=== PATIENT | male | born 1955 | race Caucasian/White ===

== ENCOUNTER 2018-07-22 20:48 | Inpatient (IN) | payer OTHER ==
[2018-07-22 21:03] VITALS: BMI 27.6
--- NOTE | 2018-07-22 22:06 | PDOC ---
History of Present Illness - General Chief Complaint: Injury Stated Complaint: FALL,INJURY Time Seen by Provider: 07/22/18 21:20 - History of Present Illness Initial Comments: 07/22/18 22:07 MH of Lymphoma, HIV (unknown CD4 count, unknown viral load) depression, history of seizures, CAD (s/p CABG) fall with subsequent L hip surgery 3 months ago and L knee surgery 1 month ago presents with sharp 10/10 pain onset this AM took percocet this morning but pain became worse tonight no fever, has some increased swelling in the L leg over the past month no chest pain no nausea, vomiting, no dysuria, hematuria has some shortness of breath and some constipation after taking percocet saw orthopedics yesterday had XR negative and reported to have good healing Surgeons: Bhargav Cisse Goes to PT, next appointment Wednesday Past History - Past Medical History Allergies/Adverse Reactions: Allergies Allergy/AdvReac Type Severity Reaction Status Date / Time No Known Drug Allergies Allergy Verified 07/22/18 21:03 shellfish derived Allergy Verified 07/22/18 21:03 Home Medications: Ambulatory Orders Citalopram Hydrobromide [Celexa -] 40 mg PO DAILY 08/20/14 [place]-3 Acid Ethyl Esters [Lovaza -] 1,000 mg PO TID 08/20/14 Omeprazole [Prilosec] 20 mg PO DAILY 08/20/14 Phenytoin Na Extended [Dilantin -] 200 mg PO BID 08/20/14 Zolpidem Tartrate [Ambien] 10 mg PO HS 08/20/14 levETIRAcetam [Keppra -] 750 mg PO BID 08/20/14 Abacavir/Dolutegravir/Lamivudi [Triumeq 600-50-300 mg Tablet] 1 each PO ASDIR Gabapentin 600 mg PO ASDIR 05/21/15 Linaclotide [Linzess] 145 mcg PO DAILY 05/21/15 Aspirin [ASA -] 81 mg PO DAILY 04/09/16 Anemia: No Asthma: No Cancer: Yes (LYMPHOMA (brain surgery 1993)) Cardiac Disorders: Yes CVA: No COPD: No CHF: No Dementia: No Diabetes: No GI Disorders: No Disorders: No HTN: No Hypercholesterolemia: No Liver Disease: No Psychiatric Problems: Yes (depression) Seizures: Yes (5 YRS AGO) Thyroid Disease: No - Surgical History Abdominal Surgery: No Appendectomy: No Cardiac Surgery: Yes (CABG X2 2006) Cholecystectomy: No Lung Surgery: No Neurologic Surgery: Yes (brain ca-2006) Orthopedic Surgery: Yes ((R) HAND 2ND DIGIT) - Immunization History Immunization Up to Date: No - Suicide/Smoking/Psychosocial Hx Smoking Status: No Smoking History: Never smoked Have you smoked in the past 12 months: No Number of Cigarettes Smoked Daily: 0 If you are a former smoker, when did you quit?: 1989 Information on smoking cessation initiated: No Hx Alcohol Use: No Drug/Substance Use Hx: No Substance Use Type: None Hx Substance Use Treatment: No *Physical Exam - Vital Signs Last Vital Signs Temp Pulse Resp BP Pulse Ox 98.1 F 72 18 125/85 98 07/22/18 21:00 07/22/18 21:00 07/22/18 21:00 07/22/18 21:00 07/22/18 21:00 - Physical Exam Comments: 07/22/18 22:11 L heel stage 1 ulcer .5cm non purulent, scabbed over, non draining slight erythema along L leg, 2+ pitting edema around the ankle and foot surgical sites look clean dry and intact Knee FROM hip slight decrease to flexion to 75 degrees ED Treatment Course - LABORATORY CBC & Chemistry Diagram: 07/22/18 23:49 07/22/18 23:49 Medical Decision Making - Medical Decision Making 07/22/18 22:11 ED Course: r.o DVT pain control consider cellulitis less liekly as not markedely erythematous or warm to touch 07/23/18 01:15 US: DVT patient difficulty ambulating, lam;l need inpatient treatement started lovenox *DC/Admit/Observation/Transfer - Referrals Referrals: Esther Emmanuel MD [Primary Care Provider] - - Patient Instructions - Post Discharge Activity
[2018-07-22] MEDS ORDERED: ACETAMINOPHEN 500 MG TABLET (FP) PO ONE (22:08)
[2018-07-23] LABS: BASO % 0.7 % (0-2.0); EOS % 2.1 % (0-4.5); HEMATOCRIT 37.4 % (35.4-49); HEMOGLOBIN 12.4 GM/dL (11.7-16.9); LYMPH % 36.9 % (8-40); MCH 32.9 pg (25.7-33.7); MCHC 33.2 g/dl (32.0-35.9); MEAN CELL VOLUME 99.2 fl (80-96); MONO % 8.9 % (3.8-10.2); NEUT % 51.4 % (42.8-82.8); PLATELET COUNT 163 K/MM3 (134-434); RBC 3.77 M/mm3 (4.00-5.60); RDW 15.2 % (11.9-15.9); WHITE BLOOD COUNT 5.2 K/mm3 (4.0-10.0)
[2018-07-23 00:21] LABS: INR 1.06 (0.83-1.09); PROTHROMBIN TIME (PATIENT) 12.5 SEC (9.7-13.0)
[2018-07-23 00:24] LABS: ACTIVATED PTT 27.9 SECONDS (25.2-36.5)
[2018-07-23 00:27] LABS: ALBUMIN 3.5 g/dl (3.4-5.0); BILIRUBIN,TOTAL 0.2 mg/dL (0.2-1); CREATININE 0.8 mg/dL (0.55-1.3); POTASSIUM 3.6 mmol/L (3.5-5.1); TOT PROT 6.5 g/dl (6.4-8.2)
[2018-07-23] MEDS ORDERED: ENOXAPARIN NA (PORCINE) 80 MG/0.8 ML DISP.SYRIN SQ ONE (01:10)
[2018-07-23] MEDS ORDERED: ENOXAPARIN NA (PORCINE) 100 MG/1 ML DISP.SYRIN SQ ONE (01:22)
--- NOTE | 2018-07-23 02:38 | PDOC ---
Documentation entered by Marisel Calle SCRIBE, acting as scribe for Suzette Hardin MD. Suzette Hardin MD: This documentation has been prepared by the mary graceibeLuc Lincy, SCRIBE, under my direction and personally reviewed by me in its entirety. I confirm that the documentation accurately reflects all work, treatment, procedures, and medical decision making performed by me. Attending Attestation - Resident Resident Name: Ruth Mays - ED Attending Attestation I have performed the following: I have examined & evaluated the patient, The case was reviewed & discussed with the resident, I agree w/resident's findings & plan - HPI HPI: 07/22/18 23:18 The patient is a 63 year old male with past medical history significant for Lymphoma, HIV CAD s/p CABG, Left hip surgery (3 months ago, s/p a fall), left knee surgery (1 month ago) presents to the emergency department with lower extremity swelling. The patient presents with a increased swelling to the left leg, associated with pain. The patient reports the pain is 10/10 in severity, no relief noted with pain medication. The patient reports followed up with Ortho yesterday, with unremarkable X-ray. Allergies: Shellfish products. NKDA - Physicial Exam PE: 07/23/18 00:13 GENERAL: Awake, alert, and fully oriented, in no acute distress HEAD: No signs of trauma EYES: PERRLA, EOMI, sclera anicteric, conjunctiva clear ENT: Auricles normal inspection, hearing grossly normal, nares patent, oropharynx clear without exudates. Moist mucosa NECK: Normal ROM, supple, no lymphadenopathy, JVD, or masses LUNGS: Breath sounds equal, clear to auscultation bilaterally. No wheezes, and no crackles HEART: Regular rate and rhythm, normal S1 and S2, no murmurs, rubs or gallops ABDOMEN: Soft, nontender, normoactive bowel sounds. No guarding, no rebound. No masses EXTREMITIES: +left leg shorter than right, calf is swollen, compared the right. Knee up no edema. Palpable pulse, but decrease compared to the right. Normal range of motion No clubbing or cyanosis. No cords, erythema, or tenderness NEUROLOGICAL: Cranial nerves II through XII grossly intact. Normal speech, normal gait SKIN: +mild pinpoint macules rash to the left ankle No other rash or cellulitis noted. - Medical Decision Making 07/23/18 01:40 Left popliteal vein DVT. 07/24/18 01:32 Pt will be admitted, only because he is unable to ambulate due to recent hip surgery and knee surg. Pt will require admission for a plan for his anticoagulation and care.
--- NOTE | 2018-07-23 02:44 | PN ---
Teaching Attending Note Name of Resident: Wally Cheema ATTENDING PHYSICIAN STATEMENT I saw and evaluated the patient. I reviewed the resident's note and discussed the case with the resident. I agree with the resident's findings and plan as documented. 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 The patient presents with a increased swelling to the left leg, associated with pain and SOB. The patient reports the pain is 10/10 in severity , no relief noted with pain medication. No family history of VTE. The patient reports follow up with Ortho yesterday, with unremarkable X-ray. Denies fever, chills, nausea, vomiting, headache, photophobia, chest pain or changes in bowel or bladder function. OBJECTIVE: Alert Vital Signs Period Temp Pulse Resp BP Sys/Silver Pulse Ox Last 24 Hr 98.1 F 72 18 125/85 98 HEENT: No Jaundice, eye redness or discharge, PERRLA, EOMI. Normocephalic, atraumatic. External ears are normal and hearing is grossly intact. No nasal discharge. Neck: Supple, nontender. No palpable adenopathy or thyromegaly. No JVD Chest: Good effort. Clear to auscultation and percussion. Heart: Regular. No S3, rub or murmur Abdomen: Not distended, soft, nontender and no HSM. No rebound or guarding. Normal bowel sounds. Ext: Peripheral pulses intact. Left calf edema. LLE shorter and left ankle rash. Skin: Warm and dry. No petechiae, rash or ecchymosis. Neuro: Alert. Oriented x3. CN 2-12 grossly intact. Sensation grossly intact in all four extremities and DTR are symmetric. Psych: Appropriate mood and affect. Good insight. Home Medications Medication Instructions Recorded Citalopram Hydrobromide [Celexa -] 40 mg PO DAILY 08/20/14 [place]-3 Acid Ethyl Esters [Lovaza 1,000 mg PO TID 08/20/14 -] Omeprazole [Prilosec] 20 mg PO DAILY 08/20/14 Phenytoin Na Extended [Dilantin -] 200 mg PO BID 08/20/14 Zolpidem Tartrate [Ambien] 10 mg PO HS 08/20/14 levETIRAcetam [Keppra -] 750 mg PO BID 08/20/14 Abacavir/Dolutegravir/Lamivudi 1 each PO ASDIR 05/21/15 [Triumeq 600-50-300 mg Tablet] Gabapentin 600 mg PO ASDIR 05/21/15 Linaclotide [Linzess] 145 mcg PO DAILY 05/21/15 Aspirin [ASA -] 81 mg PO DAILY 04/09/16 Abnormal Lab Results 07/22/18 07/22/18 23:49 23:49 RBC 3.77 L MCV 99.2 H Chloride 116 H Anion Gap 3 L AST 13 L Alkaline Phosphatase 208 H ASSESSMENT AND PLAN: 1. Left popliteal vein DVT - Likely provoked by the immobility following his left hip and knee surgeries. Started on full dose Lovenox by the ER staff. EKG and CXR pending. Will get CTA to rule out pulmonary embolism. Will switch to a DOAC once Case Management confirms which DOAC his health insurance company will cover. Consult PT. Obtain a viral load and CD4 count and continue comprehensive care of all his comorbid issues including HAART. 2. DVT prophylaxis - On full dose Lovenox for DVT. 3. Advance directives - Full code.
--- NOTE | 2018-07-23 04:01 | HP ---
CHIEF COMPLAINT: Lower extremity swelling and and tenderness PCP: Dr. Leone/ Dr. Esther Emmanuel HISTORY OF PRESENT ILLNESS: Pt. is a 63 y.o. M w/ PMHx. of Lymphoma (Brain, s/p 3 months chemo in 2005 and craniotomy), HIV(Ddx. 40 years ago on Triumeq), depression, seizures, CAD (s/p CABG 2005) presents with lower extremity swelling and tenderness that started yesterday morning with associated shortness of breath. Pt. states that 3 months ago he had a mechanical fall and fractured his left hip. Dr. Durant and Dr. Mistry repaired/replaced his hip and he completed inpatient rehab and physical therapy. The day after going home, Pt. fell and fractured his left knee, whereupon Dr. Durant and Dr. Mistry repaired/replaced his left knee 1 month ago. Pt. is currently still undergoing Pt. and has appointment on Wednesday. Pt. states that he has some left leg weakness without numbness. Pt. does endorse numbness of the hands , L>R. Pt. states he saw Dr. Almeida, Dr. Durant, Dr. Moreno and Dr. Leone within the last 2 days each and he was deemed in good health. Pt. does endorse constipation but states that it is from the Percocet that he takes for pain. Pt. denies an chest pain lightheadedness, dizziness, nausea, vomiting, dysuria, hematuria, hematochezia or melena. Pt. states he travels up to 90 min via car when he drives to various places. ER course was notable for: (1)Lovenox Therapeutic dose, Tylenol (2)CBC, CMP (3)Duplex Recent Travel: No PAST MEDICAL HISTORY: As above PAST SURGICAL HISTORY: As above, R. Hand surgery, Craniotomy Social History: Smokin/2 PPD less than 5 years, quit 90s Alcohol:Social occasion, never more than 2 drinks in one day Drugs: Remote Marijuana uses Family History: Denies Allergies No Known Drug Allergies Allergy (Verified 07/22/18 21:03) shellfish derived Allergy (Verified 07/22/18 21:03) HOME MEDICATIONS: Home Medications Medication Instructions Recorded Citalopram Hydrobromide [Celexa -] 40 mg PO DAILY 08/20/14 [place]-3 Acid Ethyl Esters [Lovaza 1,000 mg PO TID 08/20/14 -] Omeprazole [Prilosec] 20 mg PO DAILY 08/20/14 Phenytoin Na Extended [Dilantin -] 200 mg PO BID 08/20/14 Zolpidem Tartrate [Ambien] 10 mg PO HS 08/20/14 levETIRAcetam [Keppra -] 750 mg PO BID 08/20/14 Abacavir/Dolutegravir/Lamivudi 1 each PO ASDIR 05/21/15 [Triumeq 600-50-300 mg Tablet] Gabapentin 600 mg PO ASDIR 05/21/15 Linaclotide [Linzess] 145 mcg PO DAILY 05/21/15 Aspirin [ASA -] 81 mg PO DAILY 04/09/16 REVIEW OF SYSTEMS As above PHYSICAL EXAMINATION Vital Signs - 24 hr 07/22/18 21:00 Temperature 98.1 F Pulse Rate 72 Respiratory 18 Rate Blood Pressure 125/85 O2 Sat by Pulse 98 Oximetry (%) GENERAL: Awake, alert, and fully oriented, in no acute distress. HEAD: Normal with no signs of trauma. EYES: PERRL, extraocular movements intact, sclera anicteric, conjunctiva clear. EARS, NOSE, THROAT: Ears normal, nares patent, oropharynx clear without exudates. Moist mucous membranes. NECK: Normal range of motion LUNGS: Breath sounds equal, clear to auscultation bilaterally. No wheezes, and no crackles. No accessory muscle use. HEART: Regular rate and rhythm, normal S1 and S2 without murmur ABDOMEN: Soft, nontender, not distended, normoactive bowel sounds, no guarding, no rebound, no masses. MUSCULOSKELETAL: Normal range of motion at all joints. No bony deformities or tenderness. UPPER EXTREMITIES: 2+ pulses, warm, well-perfused. No cyanosis. No clubbing. No peripheral edema. LOWER EXTREMITIES: 2+ pulses, warm, well-perfused. diffuse left lower extremity tenderness. LLE 1+ edema NEUROLOGICAL: Cranial nerves II-XII intact. Normal speech. Normal gait. PSYCHIATRIC: Cooperative. Good eye contact. Appropriate mood and affect. SKIN: Warm, dry, normal turgor, no rashes or lesions noted Laboratory Results - last 24 hr 07/22/18 07/22/18 07/22/18 23:49 23:49 23:49 WBC 5.2 RBC 3.77 L Hgb 12.4 Hct 37.4 MCV 99.2 H MCH 32.9 MCHC 33.2 RDW 15.2 D Plt Count 163 MPV 10.0 Absolute Neuts (auto) 2.7 Neutrophils % 51.4 Lymphocytes % 36.9 Monocytes % 8.9 Eosinophils % 2.1 D Basophils % 0.7 Nucleated RBC % 0 PT with INR 12.50 INR 1.06 PTT (Actin FS) 27.9 Sodium 143 Potassium 3.6 Chloride 116 H Carbon Dioxide 24 Anion Gap 3 L BUN 14 Creatinine 0.8 Est GFR (CKD-EPI)AfAm 108.65 Est GFR (CKD-EPI)NonAf 93.74 Random Glucose 95 Calcium 9.0 Total Bilirubin 0.2 AST 13 L ALT 21 Alkaline Phosphatase 208 H Total Protein 6.5 Albumin 3.5 ASSESSMENT/PLAN: Pt. is a 63 y.o. M w/ PMHx. of Lymphoma (Brain, s/p 3 months chemo in 2005 and craniotomy), HIV(Ddx. 40 years ago on Triumeq), depression, seizures, CAD (s/p CABG 2005) presents with lower extremity swelling and tenderness that started yesterday morning with associated shortness of breath #LLE DVT Given Lovenox 85mg in ED Duplex positive for left popliteal DVT would consider starting on NOAC after confirming prior authorization from insurance f/u CTA EKG shows NSR, left anterior fascicular block, QTc: 472, unchanged from prior EKG in 2016 #HIV resume Triumeq f/u Dr. Leone in AM for CD4 count and Viral load #FEN no IVF, encourage PO intake monitor electrolytes and replete as needed. #DVT Ppx. consider starting NOAC received 1 therapeutic dose Lovenox Visit type - Emergency Visit Emergency Visit: Yes ED Registration Date: 07/23/18 Care time: The patient presented to the Emergency Department on the above date and was hospitalized for further evaluation of their emergent condition. - New Patient This patient is new to me today: Yes Date on this admission: 07/23/18 - Critical Care Critical Care patient: No
[2018-07-23] MEDS ORDERED: ACETAMINOPHEN 325 MG TABLET (FP) ONE (04:46)
[2018-07-23] MEDS ORDERED: oxyCODONE HCL 5 MG TABLET ONE (04:47)
[2018-07-23] MEDS: oxyCODONE HCL 5 MG TABLET PO PRN ×2 (05:01→09:45)
[2018-07-23] MEDS ORDERED: PATIENT'S OWN MEDICATION (NON-FORMULARY) (Gabapentin [Gabapentin] 600 MG) PO SCH (08:15)
[2018-07-23] MEDS ORDERED: ABACAVIR/DOLUTEGRAVIR/LAMIVUDI (TRIUMEQ) TABLET -NF PO SCH ×2 (08:15→10:00)
--- NOTE | 2018-07-23 08:28 | DS ---
Physical Exam: SUBJECTIVE: Patient seen and examined. c/o LLE pain and swelling. modest improvement sicne yesterday. denies Cp, SOB, fever, chills, cough, hemotysis, N/ V/C/D. pt is noted to be 98% on RA OBJECTIVE: Vital Signs Period Temp Pulse Resp BP Sys/Silver Pulse Ox Last 24 Hr 98.1 F 72 18 125/85 98 PHYSICAL EXAM GENERAL: The patient is awake, alert, and fully oriented, in no acute distress. breathing comfortable HEAD: Normal with no signs of trauma. EYES: PERRL, extraocular movements intact, sclera anicteric, conjunctiva clear. ENT: Ears normal, nares patent, oropharynx clear without exudates, moist mucous membranes. NECK: Trachea midline, full range of motion, supple. LUNGS: Breath sounds equal, clear to auscultation bilaterally, no wheezes, no crackles, no accessory muscle use. HEART: Regular rate and rhythm, S1, S2 without murmur, rub or gallop. ABDOMEN: Soft, nontender, nondistended, normoactive bowel sounds, no guarding, no rebound, no hepatosplenomegaly, no masses. EXTREMITIES: 2+ pulses, warm, well-perfused, LLE trace pitting edema with calf tenderness. RLE normal NEUROLOGICAL: Cranial nerves II through XII grossly intact. Normal speech, gait not observed. PSYCH: Normal mood, normal affect. SKIN: Warm, dry, normal turgor, no rashes or lesions noted. LABS Laboratory Results - last 24 hr 07/22/18 07/22/18 07/22/18 23:49 23:49 23:49 WBC 5.2 RBC 3.77 L Hgb 12.4 Hct 37.4 MCV 99.2 H MCH 32.9 MCHC 33.2 RDW 15.2 D Plt Count 163 MPV 10.0 Absolute Neuts (auto) 2.7 Neutrophils % 51.4 Lymphocytes % 36.9 Monocytes % 8.9 Eosinophils % 2.1 D Basophils % 0.7 Nucleated RBC % 0 PT with INR 12.50 INR 1.06 PTT (Actin FS) 27.9 Sodium 143 Potassium 3.6 Chloride 116 H Carbon Dioxide 24 Anion Gap 3 L BUN 14 Creatinine 0.8 Est GFR (CKD-EPI)AfAm 108.65 Est GFR (CKD-EPI)NonAf 93.74 Random Glucose 95 Calcium 9.0 Total Bilirubin 0.2 AST 13 L ALT 21 Alkaline Phosphatase 208 H Total Protein 6.5 Albumin 3.5 HOSPITAL COURSE: Date of Admission:07/23/18 Date of Discharge: 07/23/18 Admitting diagnosis: LLE DVT Pre hospital course Pt. is a 63 y.o. M w/ PMHx. of Lymphoma (Brain, s/p 3 months chemo in 2005 and craniotomy), HIV(Ddx. 40 years ago on Triumeq), depression, seizures, CAD (s/p CABG 2005) presents with lower extremity swelling and tenderness that started yesterday morning with associated shortness of breath. Pt. states that 3 months ago he had a mechanical fall and fractured his left hip. Dr. Durant and Dr. Mistry repaired/replaced his hip and he completed inpatient rehab and physical therapy. The day after going home, Pt. fell and fractured his left knee, whereupon Dr. Durant and Dr. Mistry repaired/replaced his left knee 1 month ago. Pt. is currently still undergoing Pt. and has appointment on Wednesday. Pt. states that he has some left leg weakness without numbness. Pt. does endorse numbness of the hands , L>R. Pt. states he saw Dr. Almeida, Dr. Durant, Dr. Moreno and Dr. Leone within the last 2 days each and he was deemed in good health. Pt. does endorse constipation but states that it is from the Percocet that he takes for pain. Pt. denies an chest pain lightheadedness, dizziness, nausea, vomiting, dysuria, hematuria, hematochezia or melena. Pt. states he travels up to 90 min via car when he drives to various places. Subsequent hospital course Pt admitted. doppler done showing LLE popliteal DVT and started on full dose lovenox. pt reported some dyspnea and CTA was ordered but patient refused. As pt is not hypoxic and not having any cough or hemoptysis and is hemodynamically stable therefore the risk outweigh the benefit at this time as already started on anticoagulation. seen by PT. d/c on eliis. explained in detail the risk of the medication and risks of bleeding. need to f/u with PMD for hypercoag w/u. Minutes to complete discharge: 40 Discharge Summary Reason For Visit: DEEP VAIN THROMBOSIS (DVT) Current Active Problems Deep vein thrombosis (DVT) of distal vein of left lower extremity (Acute) - Instructions Diet, Activity, Other Instructions: You were in the hospital due to pain and swelling in your left leg and we found a blood clot. This likely occurred in relation to your recent surgery and decreased mobilization over the past few months. You are being started on a blood thinning medication. Start eliquis 10mg (2 tabs ) twice a day for 7 days then take 5mg (1 tab) twice a day, this would be on 07/30 Be careful using this medication as it causes blood thinning and can lead to prolonged bleeding. Monitor yourself if your bleeding and call your doctor if your bleeding does not stop. If you fall and hit your head report to the ER for evaluation. Do not drink alcohol while taking this medication. Avoid taking NSAID products (ibuprofen, aleive, motrin, naproxen, etc) while taking this medication as these can also cause bleeding Note you are also on aspirin which can cause bleeding. Resume all your home medication Ambulate with rolling walker Follow up with your primary care doctor in 1 week. You will need to have a workup done in 3 months from now to determine if there are other causes for you to develop this clot and if you need to continue this medication or if you can stop it Return to the ER if you develop chest pain, shortness of breath or prolonged bleeding - Home Medications Comprehensive Discharge Medication List: Ambulatory Orders Citalopram Hydrobromide [Celexa -] 40 mg PO DAILY 08/20/14 [place]-3 Acid Ethyl Esters [Lovaza -] 1,000 mg PO TID 08/20/14 Omeprazole [Prilosec] 20 mg PO DAILY 08/20/14 Phenytoin Na Extended [Dilantin -] 200 mg PO BID 08/20/14 Zolpidem Tartrate [Ambien] 10 mg PO HS 08/20/14 levETIRAcetam [Keppra -] 750 mg PO BID 08/20/14 Abacavir/Dolutegravir/Lamivudi [Triumeq 600-50-300 mg Tablet] 1 each PO ASDIR Gabapentin 600 mg PO ASDIR 05/21/15 Linaclotide [Linzess] 145 mcg PO DAILY 05/21/15 Aspirin [ASA -] 81 mg PO DAILY 04/09/16 Apixaban [Eliquis] 10 mg PO BID #74 tablet 07/23/18 This patient is new to me today: Yes Date on this admission: 07/23/18 Emergency Visit: Yes ED Registration Date: 07/23/18 Care time: The patient presented to the Emergency Department on the above date and was hospitalized for further evaluation of their emergent condition. Critical Care patient: No - Discharge Referral Referred to [facility] No
[2018-07-23] MEDS ORDERED: PT OWN MED DRAWER 7, Y5N ONE ×2 (09:42→21:05)
[2018-07-23] MEDS: ASPIRIN 81 MG CHEWABLE TABLETS PO SCH (09:44)
[2018-07-23] MEDS: CITALOPRAM HYDROBROMIDE 20 MG TABLET (FP) PO SCH (09:45)
[2018-07-23] MEDS: ABACAVIR/DOLUTEGRAVIR/LAMIVUDI (TRIUMEQ) TABLET -NF PO SCH (10:00)
[2018-07-23] MEDS ORDERED: APIXABAN 5 MG TABLET PO SCH (10:00)
[2018-07-23] MEDS: PHENYTOIN NA EXTENDED 100 MG CAPSULE (FP) PO SCH ×2 (10:00→22:26)
[2018-07-23] MEDS ORDERED: WARFARIN NA 5 MG TABLET (UD) PO ONE (11:03)
[2018-07-23] MEDS: levETIRAcetam 250 MG TABLET (FP) PO SCH ×2 (14:01→22:27)
[2018-07-23] MEDS: ENOXAPARIN NA (PORCINE) 100 MG/1 ML DISP.SYRIN SQ SCH ×2 (14:02→22:25)
[2018-07-24 06:50] LABS: HEMATOCRIT 38.5 % (35.4-49); HEMOGLOBIN 12.9 GM/dL (11.7-16.9); MCH 33.1 pg (25.7-33.7); MCHC 33.4 g/dl (32.0-35.9); MEAN CELL VOLUME 99.1 fl (80-96); MEAN PLT VOLUME 10.1 fl (7.5-11.1); PLATELET COUNT 164 K/MM3 (134-434); RBC 3.89 M/mm3 (4.00-5.60); RDW 14.8 % (11.9-15.9); WHITE BLOOD COUNT 4.4 K/mm3 (4.0-10.0)
[2018-07-24 07:14] LABS: CALCIUM 8.9 mg/dL (8.5-10.1); CREATININE 0.8 mg/dL (0.55-1.3); MAGNESIUM 2.2 mg/dL (1.8-2.4); POTASSIUM 3.7 mmol/L (3.5-5.1)
[2018-07-24] MEDS ORDERED: PT OWN MED DRAWER 7, Y5N ONE ×2 (09:01→20:34)
[2018-07-24] MEDS: ASPIRIN 81 MG CHEWABLE TABLETS PO SCH (10:16)
[2018-07-24] MEDS: PHENYTOIN NA EXTENDED 100 MG CAPSULE (FP) PO SCH ×2 (10:17→21:47)
[2018-07-24] MEDS: levETIRAcetam 250 MG TABLET (FP) PO SCH ×2 (10:20→21:47)
[2018-07-24] MEDS: ABACAVIR/DOLUTEGRAVIR/LAMIVUDI (TRIUMEQ) TABLET -NF PO SCH (10:20)
[2018-07-24] MEDS: CITALOPRAM HYDROBROMIDE 20 MG TABLET (FP) PO SCH (10:21)
[2018-07-24] MEDS: ENOXAPARIN NA (PORCINE) 100 MG/1 ML DISP.SYRIN SQ SCH ×2 (10:21→21:46)
--- NOTE | 2018-07-24 13:44 | PN ---
Teaching Attending Note Name of Resident: Maryam Shore ATTENDING PHYSICIAN STATEMENT I saw and evaluated the patient. I reviewed the resident's note and discussed the case with the resident. I agree with the resident's findings and plan as documented. SUBJECTIVE: Feels well. No complaints. No LE pain. No chest pain/palps/dyspnea/ hemotysis. No fever/chills. OBJECTIVE: Afebrile, Hemodynamically Stable Last Vital Signs Temp Pulse Resp BP Pulse Ox 98.7 F 68 18 124/83 97 07/24/18 09:00 07/24/18 09:00 07/24/18 09:00 07/24/18 09:00 07/24/18 09:00 HEENT- Atraumatic. Heart - S1, S2, RRR Lungs - clear to auscultation Abdomen - Soft, non-tender. Extremities - trace edema. Laboratory Results - last 24 hr 07/24/18 07/24/18 05:30 05:30 WBC 4.4 RBC 3.89 L Hgb 12.9 Hct 38.5 MCV 99.1 H MCH 33.1 MCHC 33.4 RDW 14.8 Plt Count 164 MPV 10.1 Sodium 142 Potassium 3.7 Chloride 109 H Carbon Dioxide 26 Anion Gap 7 L BUN 13 Creatinine 0.8 Est GFR (CKD-EPI)AfAm 108.65 Est GFR (CKD-EPI)NonAf 93.74 Random Glucose 76 Calcium 8.9 Magnesium 2.2 Current Medications Generic Name Dose Route Start Last Admin Trade Name Freq PRN Reason Stop Dose Admin Abacavir/Dolutegravir/Lamivudine 1 each 07/23/18 10:00 07/24/18 10:20 Triumeq (Non-Formulary) PO 1 each DAILY DEBI Administration Aspirin 81 mg 07/23/18 10:07/24/18 10:16 Asa - PO 81 mg DAILY DEBI Administration Citalopram Hydrobromide 40 mg 07/23/18 10:00 07/24/18 10:21 Celexa - PO 40 mg DAILY DEBI Administration Enoxaparin Sodium 90 mg 07/23/18 11:45 07/24/18 10:21 Lovenox - SQ 90 mg BID DEBI Administration Levetiracetam 750 mg 07/23/18 10:00 07/24/18 10:20 Keppra - PO 750 mg BID DEBI Administration Oxycodone HCl 5 mg 07/23/18 03:51 07/23/18 09:45 Roxicodone - PO 5 mg Q4H PRN Administration PAIN LEVEL 7 - 10 Phenytoin Sodium 200 mg 07/23/18 10:00 07/24/18 10:17 Dilantin - PO 200 mg BID DEBI Administration Warfarin Sodium 5 mg 07/24/18 18:00 Coumadin - PO 07/24/18 18:01 ONCE@1800 ONE ASSESSMENT AND PLAN: 63 year old male with history of Lymphoma (Brain, s/p 3 months chemo in 2005 and craniotomy), HIV (on Triumeq), Depression, Seizure Disorder, CAD (s/p CABG 2005) presents with left lower extremity swelling and tenderness, found to have DVT. 1. LLE DVT s/p L Hip replacement/repair s/p fracture due to fall 3 months ago US Duplex positive for LLE popliteal DVT Due to interaction between NOAC and Dilantin, patient was started on Coumadin with Lovenox bridging - target INR 2-3. 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 He will need criminal justice social worker support, will discuss with case management. Coumadin 5mg tonight with INR check in AM 2. HIV - resumed on Triumeq 3. Seizure Disorder - Continue Dilantin, Keppra. 4. Depression - Continue Celexa and Klonopin prn. 5. CAD s/p CABG 2005 - on Aspirin. DVT Px - On Coumadin with Lovenox bridging for Acute DVT
--- NOTE | 2018-07-24 14:25 | PN ---
Physical Exam: SUBJECTIVE: Patient seen and examined at bedside. Without complaint. Resting comfortably. OBJECTIVE: Vital Signs Period Temp Pulse Resp BP Sys/Silver Pulse Ox Last 24 Hr 97.6 F-98.7 F 68-88 18-20 119-125/75-83 97-99 GENERAL: The patient is AAOx 2 (to self, place) HEAD: Normal with no signs of trauma. EYES: PERRL, extraocular movements intact, sclera anicteric, conjunctiva clear. ENT: Ears normal, nares patent, oropharynx clear without exudates, moist mucous membranes. NECK: Trachea midline, supple. LUNGS: Breath sounds equal, clear to auscultation bilaterally, no wheezes, no crackles, no accessory muscle use. HEART: Regular rate and rhythm, S1, S2 without murmur, rub or gallop. ABDOMEN: Soft, nontender, nondistended, normoactive bowel sounds, no guarding, no rebound EXTREMITIES: 2+ pt pulses, warm, well-perfused, LLE trace edema. NEUROLOGICAL: Cranial nerves II through XII appear to be grossly intact. PSYCH: Normal mood, normal affect. SKIN: Warm, dry, normal turgor Laboratory Results 07/24/18 07/24/18 05:30 05:30 WBC 4.4 RBC 3.89 L Hgb 12.9 Hct 38.5 MCV 99.1 H MCH 33.1 MCHC 33.4 RDW 14.8 Plt Count 164 MPV 10.1 Sodium 142 Potassium 3.7 Chloride 109 H Carbon Dioxide 26 Anion Gap 7 L BUN 13 Creatinine 0.8 Est GFR (CKD-EPI)AfAm 108.65 Est GFR (CKD-EPI)NonAf 93.74 Random Glucose 76 Calcium 8.9 Magnesium 2.2 ASSESSMENT/PLAN: 63 y.o. M w/ PMHx. of Lymphoma (Brain, s/p 3 months chemo in 2005 and craniotomy), HIV(Ddx. 40 years ago on Triumeq), depression, seizures, CAD (s/p CABG 2005) presents with lower extremity swelling and tenderness that started 1 day prior to admission a/w SOB. Pt found to have LLE DVT. #LLE DVT -unable to give eliquis d/t dilantin rxn -started on lovenox BID bridge w/ coumadin . will give dose of 5mg tonight will check INR tomorrow. -will need additional services as pt unable to admin med on own. #HIV -c/w Triumeq -f/u with Dr. Farris CD4 count and Viral load #FEN no IVF, encourage PO intake continue to monitor lytes reg diet #DVT PPX as above #Dispo cont'd monitoring on med-surg SW sent VNS referral Visit type - Emergency Visit Emergency Visit: No - New Patient This patient is new to me today: Yes Date on this admission: 07/24/18 - Critical Care Critical Care patient: No
--- NOTE | 2018-07-24 15:16 | EKG ---
Test Reason : Blood Pressure : / mmHG Vent. Rate : 064 BPM Atrial Rate : 064 BPM P-R Int : 178 ms QRS Dur : 088 ms QT Int : 458 ms P-R-T Axes : 017 -45 017 degrees QTc Int : 472 ms NORMAL SINUS RHYTHM LEFT ANTERIOR FASCICULAR BLOCK ABNORMAL ECG WHEN COMPARED WITH ECG OF 28-MAY-2015 01:24, NO SIGNIFICANT CHANGE WAS FOUND Confirmed by SHER PRYOR MD ([id number]) on 07/24/2018 3:15:57 PM Referred By: Confirmed By:SHER PRYOR MD
[2018-07-24] MEDS ORDERED: WARFARIN NA 5 MG TABLET (UD) PO ONE (18:00)
[2018-07-25 07:13] LABS: INR 1.14 (0.83-1.09); PROTHROMBIN TIME (PATIENT) 13.5 SEC (9.7-13.0)
[2018-07-25 09:32] VITALS: BP 123/74; PULSE 92; TEMP 97.3
[2018-07-25] MEDS: ENOXAPARIN NA (PORCINE) 100 MG/1 ML DISP.SYRIN SQ SCH (09:33)
[2018-07-25] MEDS: CITALOPRAM HYDROBROMIDE 20 MG TABLET (FP) PO SCH (09:34)
[2018-07-25] MEDS: PHENYTOIN NA EXTENDED 100 MG CAPSULE (FP) PO SCH (09:34)
[2018-07-25] MEDS: ABACAVIR/DOLUTEGRAVIR/LAMIVUDI (TRIUMEQ) TABLET -NF PO SCH (09:34)
[2018-07-25] MEDS: ASPIRIN 81 MG CHEWABLE TABLETS PO SCH (09:34)
[2018-07-25] MEDS: levETIRAcetam 250 MG TABLET (FP) PO SCH (09:35)
--- NOTE | 2018-07-25 16:34 | PN ---
Teaching Attending Note Name of Resident: Maryam Shore ATTENDING PHYSICIAN STATEMENT I saw and evaluated the patient. I reviewed the resident's note and discussed the case with the resident. I agree with the resident's findings and plan as documented. SUBJECTIVE:asymptomatic. denies CP, SOB, fever, chills, N/V/C/D. leg pain improved OBJECTIVE: Last Vital Signs Temp Pulse Resp BP Pulse Ox 97.3 F L 92 H 18 123/74 95 07/25/18 09:00 07/25/18 09:00 07/25/18 09:00 07/25/18 09:00 07/25/18 09:00 Ana NAD ASSESSMENT AND PLAN: 63yo M with PMH brain lymphoma, HIV on HARRT, CAD s/p CABG and seizure presenting with LLE swelling and found to have DVT 1. LLE DVT-provoked by recent surgery and decreased mobilization. was discharged on 07/23 on lovenox-coumadin bridge. will need frequent INR checks. pt verbalized understanding and agreement of needed to continue injections until instructed by PMD he can stop. told him to f/u with INR in 2 days 2. HIV on HARRT- there is interaction between this and dilantin. instructed pt to d/w PMD about interaction and ensure he should continue this treatment plan 3. seizure- cont current management but alerted of multiple interactions with dilantin. instructed patient to discuss with his PMD 4. d/c home
== END 2018-07-25 15:36 | disposition home or self-care (01) | DRG 301 ==
LOC: JER 20:48 → JERBED 07-23 01:52 → J7W 07-23 06:21
PROVIDERS: ADMIT Internal Medicine; ATTEND Internal Medicine
DX: I82.432 Acute embolism and thrombosis of left popliteal vein (principal); I25.10 Atherosclerotic heart disease of native coronary artery without angina pectoris; F32.9 Major depressive disorder, single episode, unspecified; G40.909 Epilepsy, unspecified, not intractable, without status epilepticus; Z21 Asymptomatic human immunodeficiency virus [HIV] infection status; Z95.1 Presence of aortocoronary bypass graft; Z87.891 Personal history of nicotine dependence; Z85.72 Personal history of non-Hodgkin lymphomas; Z85.841 Personal history of malignant neoplasm of brain
CPT/HCPCS: 36415; 80048; 80053; 83735; 85025; 85027; 85610; 85730; 87081; 93005; 93010; 93970-TC; 97116-GP; 97162-GP; 99282-25

== ENCOUNTER 2018-09-05 10:30 | Emergency (ER) | payer OTHER ==
[2018-09-05 10:43] VITALS: BP 136/90; PULSE 111; TEMP 98.4; BMI 27.6
--- NOTE | 2018-09-05 12:15 | PDOC ---
History of Present Illness - General Chief Complaint: Shortness of Breath Stated Complaint: SOB Time Seen by Provider: 09/05/18 11:59 History Source: Patient Exam Limitations: No Limitations - History of Present Illness Initial Comments: 09/05/18 12:15 63YOM who had left TKR with Dr. Mistry 2 months ago, LLE DVT, Lymphoma (Brain, s/ p 3 months chemo in 2005 and craniotomy), HIV (on HAART), depression, seizures, CAD (s/p CABG in 2006), who was BIBEMS after 911 was called, reportedly by home child care provider, for SOB. The patient himself is a very difficult historian and states only that he was transiently SOB 2 hours ago, since resolved, and has never had this happen before. He notes that for the past 2 months he has been requiring a walker to ambulate and late this morning he actually called for his home child care provider to bring him his walker from elsewhere in his home (where he left it), but they ended up calling 911 for his shortness of breath. The patient is able to state that he has not chest pain, palpitations, abdominal pain, cough, congestion, runny nose, new headache, or new n/t/w focally. He notes chronic unchanged dizziness. PCP's are Dr. Leone and Dr. Esther Emmanuel, Neurologist Dr. Escobar. Past History - Past Medical History Allergies/Adverse Reactions: Allergies Allergy/AdvReac Type Severity Reaction Status Date / Time No Known Drug Allergies Allergy Verified 09/05/18 10:41 shellfish derived Allergy Verified 09/05/18 10:41 Home Medications: Ambulatory Orders Citalopram Hydrobromide [Celexa -] 40 mg PO DAILY 08/20/14 [place]-3 Acid Ethyl Esters [Lovaza -] 1,000 mg PO TID 08/20/14 Omeprazole [Prilosec] 20 mg PO DAILY 08/20/14 Phenytoin Na Extended [Dilantin -] 200 mg PO BID 08/20/14 Zolpidem Tartrate [Ambien] 10 mg PO HS 08/20/14 levETIRAcetam [Keppra -] 750 mg PO BID 08/20/14 Abacavir/Dolutegravir/Lamivudi [Triumeq 600-50-300 mg Tablet] 1 each PO DAILY Linaclotide [Linzess] 145 mcg PO DAILY 05/21/15 Aspirin [ASA -] 81 mg PO DAILY 04/09/16 Enoxaparin [Lovenox -] 90 mg SQ BID #14 disp.syrin 07/23/18 Warfarin Sodium [Coumadin] 5 mg PO DAILY #7 tablet 07/23/18 Oxycodone HCl/Acetaminophen [Oxycodone-Acetaminophen 5-325] 1 each PO PRN clonazePAM [Klonopin -] 0.5 mg PO PRN 07/24/18 Anemia: No Asthma: No Cancer: Yes (LYMPHOMA (brain surgery 1993)) Cardiac Disorders: Yes CVA: No COPD: No CHF: No Dementia: No Diabetes: No GI Disorders: No Disorders: No HTN: No Hypercholesterolemia: No Liver Disease: No Psychiatric Problems: Yes (depression) Seizures: Yes (5 YRS AGO) Thyroid Disease: No - Surgical History Abdominal Surgery: No Appendectomy: No Cardiac Surgery: Yes (CABG X2 2005) Cholecystectomy: No Lung Surgery: No Neurologic Surgery: Yes (brain ca-2005) Orthopedic Surgery: Yes ((R) HAND 2ND DIGIT) - Immunization History Immunization Up to Date: No - Suicide/Smoking/Psychosocial Hx Smoking Status: No Smoking History: Unknown if ever smoked Have you smoked in the past 12 months: No Number of Cigarettes Smoked Daily: 0 If you are a former smoker, when did you quit?: 1989 Hx Alcohol Use: No Drug/Substance Use Hx: No Substance Use Type: None Hx Substance Use Treatment: No Review of Systems - Review of Systems Able to Perform ROS?: Yes Comments:: 09/05/18 13:33 GEN: no fever, chills, malaise, generalized weakness, or weight change HEENT: no ear pain, sore throat, vision change, or eye pain CV: no chest pain, palpitations, lightheadedness, syncope, or edema RESP: SOB, no cough, or wheezing GI: no abdominal pain, nausea, vomiting, diarrhea, constipation, or white/black/ bloody stool : no dysuria, hematuria, incontinence, retention, bleeding, or discharge MSK: left knee pain x2 months causing difficulty walking, otherwise no neck/ back pain, muscle weakness/pain, or joint swelling/pain NEURO: no headache, seizure, vertigo, numbness, tingling, or focal weakness PSYCH: no substance use, no behavior change SKIN: no jaundice, no rash ROS otherwise negative except as noted in HPI *Physical Exam - Vital Signs Last Vital Signs Temp Pulse Resp BP Pulse Ox 98.4 F 111 H 22 H 136/90 99 09/05/18 10:41 09/05/18 10:41 09/05/18 10:41 09/05/18 10:41 09/05/18 10:41 - Physical Exam Comments: 09/05/18 13:00 GENERAL: a bit sunken appearance but nontoxic-appearing, A/Ox4, frustrated, bizarre affect, difficult historian HEENT: PERRLA, EOMI, a bit dry mucous membranes NECK/BACK: no midline ttp, no spinal stepoff or deformity, no hematoma, full ROM , neck supple CARDIOVASCULAR: regular rate/rhythm, normal S1S2, no MGR, strong peripheral pulses, capillary refill <2 seconds, extremities wwp, no edema LUNGS/RESPIRATORY: no respiratory distress, CTAB GI/ABDOMEN: symmetric [id number], normoactive BS, soft, no ttp, no midline pulsatile masses : no CVA tenderness EXTREMITIES: LLE scar from TKR, no calf tenderness/swelling, no palpable cord, no varicosities, no muscle atrophy, no acute deformity SKIN: warm and dry, no pallor, no jaundice, no rash, no bruising, no skin breakdown, no cuts, no lesions NEUROLOGICAL: GCS 15, CN II-XII grossly intact, 5/5 strength proximally and distally, no facial droop ED Treatment Course - LABORATORY CBC & Chemistry Diagram: 09/05/18 13:11 09/05/18 12:29 Medical Decision Making - Medical Decision Making 09/05/18 13:00 63YOM patient p/w transient SOB, recently dx DVT reportedly on warfarin, provoked by left TKR 2 months ago. Initial Vital Signs Temp Pulse Resp BP Pulse Ox 98.4 F 111 H 22 H 136/90 99 09/05/18 10:41 09/05/18 10:41 09/05/18 10:41 09/05/18 10:41 09/05/18 10:41 Exam: As noted in Physical Exam section. DDX IBNLT: PE/VTE, arrhythmia, ACS, atypical angina, PNA/bronchitis, COPD, CHF, etc. W/U ordered: Labs as noted below, EKG, CTH TX ordered: [facility] EKG: Reviewed; results as noted in ECG Review section. Laboratory Tests 09/05/18 09/05/18 09/05/18 12:29 12:30 13:11 WBC RBC Hgb Hct MCV MCH MCHC RDW Plt Count MPV Absolute Neuts (auto) Neutrophils % Lymphocytes % Monocytes % Eosinophils % Basophils % Nucleated RBC % PT with INR INR PTT (Actin FS) 29.6 Sodium 140 Potassium 4.4 Chloride 109 H Carbon Dioxide 26 Anion Gap 5 L BUN 22.4 H Creatinine 1.1 Est GFR (CKD-EPI)AfAm 81.22 Est GFR (CKD-EPI)NonAf 70.07 Random Glucose 92 Calcium 10.1 Total Bilirubin 0.3 AST 13 L ALT 27 Alkaline Phosphatase 247 H B-Natriuretic Peptide 36.7 Total Protein 8.4 H Albumin 4.7 09/05/18 09/05/18 13:11 13:11 WBC 7.6 RBC 4.71 Hgb 15.9 Hct 46.7 D MCV 99.2 H MCH 33.8 H MCHC 34.1 RDW 14.9 Plt Count 172 MPV 10.0 Absolute Neuts (auto) 5.5 Neutrophils % 73.1 D Lymphocytes % 20.2 D Monocytes % 6.0 Eosinophils % 0.3 D Basophils % 0.4 Nucleated RBC % 0 PT with INR 12.80 INR 1.08 PTT (Actin FS) Sodium Potassium Chloride Carbon Dioxide Anion Gap BUN Creatinine Est GFR (CKD-EPI)AfAm Est GFR (CKD-EPI)NonAf Random Glucose Calcium Total Bilirubin AST ALT Alkaline Phosphatase B-Natriuretic Peptide Total Protein Albumin CTH: Patient refused Chest CT PE Protocol: Patient refused Reassessment: The patient states he wants to go home. He is A/O x4, states he feels 100% better. Risks of leaving AMA are discussed thoroughly and the patient is adamant he wants to leave. I have spoken with Dr. Escobar who will kindly see the patient in the office later this week. 09/05/18 15:29 AMA paperwork filled out and signed by all appropriate parties after thorough discussion. The patient calls a family member to pick him up and leaves with them. He is counseled to f/u with Dr. Moreno. *DC/Admit/Observation/Transfer Diagnosis at time of Disposition: SOB (shortness of breath) - Discharge Dispostion Disposition: AGAINST MEDICAL ADVICE Condition at time of disposition: Unchanged/Unknown Decision to Admit order: No - Referrals Referrals: Ilan Moreno MD [Staff Physician] - - Patient Instructions Additional Instructions: You were seen in the ER for shortness of breath. We did laboratory work and an EKG, and we strongly recommended CT scans, but you refused this imaging. You chose to leave against our medical advice. We did speak with Dr. Escobar who is expecting you in his clinic later this week. Please call his office and make an appointment MONA. If you have any new or worsening symptoms, please come back to the ER at any time (24 hours a day). If you are having severe or life threatening symptoms, or symptoms that make it unsafe to drive or have someone drive you, please call 911. If you change your mind and want to come back to the ER for completion of your workup, please return. - Post Discharge Activity
[2018-09-05 13:40] LABS: INR 1.08 (0.83-1.09); PROTHROMBIN TIME (PATIENT) 12.8 SEC (9.7-13.0)
--- NOTE | 2018-09-05 13:45 | PDOC ---
Documentation entered by Jesus Alva SCRIBE, acting as scribe for Jennifer Garcia MD. Jennifer Garcia MD: This documentation has been prepared by the inoeArtie Joel, SCRIBE, under my direction and personally reviewed by me in its entirety. I confirm that the documentation accurately reflects all work, treatment, procedures, and medical decision making performed by me. Attending Attestation - Resident Resident Name: RiccardoElva - ED Attending Attestation I have performed the following: I have examined & evaluated the patient, The case was reviewed & discussed with the resident, I agree w/resident's findings & plan, Exceptions are as noted - HPI HPI: 63 yo M history LLE DVT, recent TKR, lymphoma, HIV on ART, depression, seizures , CAD presents with episode of SOB this morning. DVT was diagnosed after the knee surgery, patient is supposed to be taking warfarin, but it is unclear whether he is taking it or not (very vague historian). Denies any symptoms at present. - Physicial Exam PE: GENERAL: Awake, alert, and fully oriented, in no acute distress HEAD: No signs of trauma EYES: PERRLA, EOMI, sclera anicteric, conjunctiva clear ENT: Auricles normal inspection, hearing grossly normal, nares patent, oropharynx clear without exudates. Moist mucosa NECK: Normal ROM, supple, no lymphadenopathy, JVD, or masses LUNGS: Breath sounds equal, clear to auscultation bilaterally. No wheezes, and no crackles HEART: Regular rate and rhythm, normal S1 and S2, no murmurs, rubs or gallops ABDOMEN: Soft, nontender, normoactive bowel sounds. No guarding, no rebound. No masses EXTREMITIES: Normal range of motion, no edema. No clubbing or cyanosis. No cords, erythema, or tenderness NEUROLOGICAL: Cranial nerves II through XII grossly intact. Normal speech, normal gait. Motor and sensation intact SKIN: Warm, dry, normal turgor, no rashes or lesions noted. - Medical Decision Making Pt with recently diagnosed DVT, unclear if he is taking AC, presents with episode of SOB this morning. Presented with tachycardia and tachypnea. Will obtain cardiac workup and plan for CTA r/o PE.
[2018-09-05 13:46] LABS: BASO % 0.4 % (0-2.0); EOS % 0.3 % (0-4.5); HEMATOCRIT 46.7 % (35.4-49); HEMOGLOBIN 15.9 GM/dL (11.7-16.9); LYMPH % 20.2 % (8-40); MCH 33.8 pg (25.7-33.7); MCHC 34.1 g/dl (32.0-35.9); MEAN CELL VOLUME 99.2 fl (80-96); NEUT % 73.1 % (42.8-82.8); PLATELET COUNT 172 K/MM3 (134-434); RBC 4.71 M/mm3 (4.00-5.60); RDW 14.9 % (11.9-15.9); WHITE BLOOD COUNT 7.6 K/mm3 (4.0-10.0)
[2018-09-05 14:04] LABS: ALBUMIN 4.7 g/dl (3.4-5.0); ALK PHOS 247 U/L (45-117); ANION GAP 5 MMOL/L (8-16); BILIRUBIN,TOTAL 0.3 mg/dL (0.2-1); BLOOD UREA NITROGEN 22.4 mg/dL (7-18); CALCIUM 10.1 mg/dL (8.5-10.1); CHLORIDE 109 mmol/L (98-107); CO2 26 mmol/L (21-32); CREATININE 1.1 mg/dL (0.55-1.3); GLUCOSE,RANDOM 92 mg/dL (74-106); POTASSIUM 4.4 mmol/L (3.5-5.1); SGOT/AST 13 U/L (15-37); SGPT/ALT 27 U/L (13-61); SODIUM 140 mmol/L (136-145); TOT PROT 8.4 g/dl (6.4-8.2)
[2018-09-05] MEDS: ACETAMINOPHEN 1000 MG/100 ML VIAL (NON FORMULARY) IVPB ONE ×2 (14:27→14:36)
[2018-09-05] MEDS ORDERED: ACETAMINOPHEN INJECTION 100 ML IVPB ONE (14:29)
--- NOTE | 2018-09-05 14:36 | EKG ---
Test Reason : Blood Pressure : / mmHG Vent. Rate : 092 BPM Atrial Rate : 092 BPM P-R Int : 172 ms QRS Dur : 086 ms QT Int : 400 ms P-R-T Axes : 058 -56 054 degrees QTc Int : 494 ms NORMAL SINUS RHYTHM LEFT ANTERIOR FASCICULAR BLOCK PROLONGED QT ABNORMAL ECG WHEN COMPARED WITH ECG OF 23-JUL-2018 03:18, NO SIGNIFICANT CHANGE WAS FOUND Confirmed by BETO GREEN MD ([id number]) on 09/05/2018 2:36:04 PM Referred By: Confirmed By:BETO GREEN MD
== END 2018-09-05 16:29 | disposition left against medical advice (07) ==
LOC: JER 10:30
DX: R06.02 Shortness of breath (principal); I25.10 Atherosclerotic heart disease of native coronary artery without angina pectoris; Z95.1 Presence of aortocoronary bypass graft; F32.9 Major depressive disorder, single episode, unspecified; Z86.718 Personal history of other venous thrombosis and embolism; Z79.01 Long term (current) use of anticoagulants; Z85.72 Personal history of non-Hodgkin lymphomas; Z86.69 Personal history of other diseases of the nervous system and sense organs; Z21 Asymptomatic human immunodeficiency virus [HIV] infection status
CPT/HCPCS: 36415; 80053; 82550; 83880; 84484; 85025; 85610; 85730; 93005; 93010; 99283-25; J0131

== ENCOUNTER 2019-03-23 13:33 | Inpatient (IN) | payer BC, OTHER ==
[2019-03-23] MEDS ORDERED: ACETAMINOPHEN 500 MG TABLET (FP) PO PRN (18:18)
--- NOTE | 2019-03-23 18:22 | HP ---
Admitting History and Physical - Primary Care Physician PCP: Ilan Moreno - Admission History of Present Illness: 64 year old man with PMH CAD OA FUR MIXER lymphoma Epilepsy Seziure On two AED Frequent fall with recent hip surgery Came in for lective VEEG admission History Source: Patient Limitations to Obtaining History: No Limitations - Past Medical History FUR MIXER: Yes: Seizure Cardiovascular: Yes: CAD, Other (CABG surgery) Gastrointestinal: Yes: Ascites. No: Cancer Heme/Onc: Yes: Other (History of Hodgkins lymphoma many years ago in remission) - Smoking History Smoking history: Unknown if ever smoked Have you smoked in the past 12 months: No Aproximately how many cigarettes per day: 0 If you are a former smoker, when did you quit?: 1989 - Alcohol/Substance Use Hx Alcohol Use: No Home Medications - Allergies Allergies/Adverse Reactions: Allergies Allergy/AdvReac Type Severity Reaction Status Date / Time No Known Drug Allergies Allergy Verified 09/05/18 10:41 shellfish derived Allergy Verified 09/05/18 10:41 - Home Medications Home Medications: Ambulatory Orders Citalopram Hydrobromide [Celexa -] 40 mg PO DAILY 08/20/14 [place]-3 Acid Ethyl Esters [Lovaza -] 1,000 mg PO TID 08/20/14 Omeprazole [Prilosec] 20 mg PO DAILY 08/20/14 Phenytoin Na Extended [Dilantin -] 200 mg PO BID 08/20/14 Zolpidem Tartrate [Ambien] 10 mg PO HS 08/20/14 levETIRAcetam [Keppra -] 750 mg PO BID 08/20/14 Abacavir/Dolutegravir/Lamivudi [Triumeq 600-50-300 mg Tablet] 1 each PO DAILY Linaclotide [Linzess] 145 mcg PO DAILY 05/21/15 Aspirin [ASA -] 81 mg PO DAILY 04/09/16 Enoxaparin [Lovenox -] 90 mg SQ BID #14 disp.syrin 07/23/18 Warfarin Sodium [Coumadin] 5 mg PO DAILY #7 tablet 07/23/18 Oxycodone HCl/Acetaminophen [Oxycodone-Acetaminophen 5-325] 1 each PO PRN clonazePAM [Klonopin -] 0.5 mg PO PRN 07/24/18 Family Medical History Family History: Unremarkable Review of Systems - Review of Systems Constitutional: reports: No Symptoms Eyes: reports: No Symptoms HENT: reports: No Symptoms Physical Examination Constitutional: Yes: Well Nourished Eyes: Yes: WNL Musculoskeletal: Yes: Back Pain Neurological: Yes: Alert, Oriented, Babinski positive, Cran Nerves II-XII Intact ...Motor Strength: WNL Problem List - Problems (1) Seizure disorder Code(s): G40.909 - EPILEPSY, UNSP, NOT INTRACTABLE, WITHOUT STATUS EPILEPTICUS Assessment/Plan Blood test EEG VEEG Seziure precaution Dilatin same Thanks
[2019-03-23 18:31] VITALS: BMI 26.7
[2019-03-23] MEDS ORDERED: HEPARIN NA (PORCINE) 5,000 UNITS/ML 1ML VIAL SQ ONE (18:45)
[2019-03-23] MEDS: HEPARIN NA (PORCINE) 5,000 UNITS/ML 1ML VIAL SQ SCH (21:21)
[2019-03-23 21:35] LABS: HEMATOCRIT 41.7 % (35.4-49); HEMOGLOBIN 14.4 GM/dL (11.7-16.9); MCH 36.1 pg (25.7-33.7); MCHC 34.6 g/dl (32.0-35.9); MEAN CELL VOLUME 104.6 fl (80-96); MEAN PLT VOLUME 10.2 fl (7.5-11.1); PLATELET COUNT 152 K/MM3 (134-434); RBC 3.99 M/mm3 (4.00-5.60); RDW 13.7 % (11.9-15.9); WHITE BLOOD COUNT 4.9 K/mm3 (4.0-10.0)
[2019-03-23 21:41] LABS: ALBUMIN 3.8 g/dl (3.4-5.0); BILIRUBIN,DIRECT 0.1 mg/dL (0.0-0.2); BILIRUBIN,TOTAL 0.2 mg/dL (0.2-1); BLOOD UREA NITROGEN 18.4 mg/dL (7-18); CALCIUM 8.3 mg/dL (8.5-10.1); POTASSIUM 4.2 mmol/L (3.5-5.1); TOT PROT 6.8 g/dl (6.4-8.2)
[2019-03-23] MEDS: PHENYTOIN NA EXTENDED 100 MG CAPSULE (FP) PO SCH (23:45)
[2019-03-23] MEDS: LACOSAMIDE 50 MG TABLET PO SCH (23:45)
[2019-03-24] MEDS: LACOSAMIDE 50 MG TABLET PO SCH ×2 (09:00→22:17)
[2019-03-24] MEDS: PHENYTOIN NA EXTENDED 100 MG CAPSULE (FP) PO SCH ×2 (09:00→22:18)
[2019-03-24] MEDS: HEPARIN NA (PORCINE) 5,000 UNITS/ML 1ML VIAL SQ SCH ×2 (09:01→22:18)
--- NOTE | 2019-03-24 15:12 | EKG ---
Test Reason : Blood Pressure : / mmHG Vent. Rate : 072 BPM Atrial Rate : 072 BPM P-R Int : 192 ms QRS Dur : 088 ms QT Int : 418 ms P-R-T Axes : 038 -51 040 degrees QTc Int : 457 ms NORMAL SINUS RHYTHM LEFT ANTERIOR FASCICULAR BLOCK ABNORMAL ECG WHEN COMPARED WITH ECG OF 23-MAR-2019 18:47, NO SIGNIFICANT CHANGE WAS FOUND Confirmed by FRANNY SANDHU MD ([id number]) on 03/24/2019 3:12:11 PM Referred By: Confirmed By:FRANNY SANDHU MD
--- NOTE | 2019-03-24 17:46 | PN ---
Progress Note, Physician History of Present Illness: events noted chart reviewed seen on the video EEG monitoring alert awake oriented Switch to Keppra to the Vimpat Tolerating the medication very well On gabapentin at night - Current Medication List Current Medications: Active Medications Acetaminophen (Tylenol -) 500 mg PO Q6H PRN PRN Reason: PAIN OR FEVER Last Admin: 03/24/19 08:58 Dose: 500 mg Aspirin (Ecotrin -) 81 mg PO DAILY [facility] Atorvastatin Calcium (Lipitor -) 10 mg PO HS [facility] Buspirone HCl (Buspar -) 10 mg PO BID [facility] Citalopram Hydrobromide (Celexa -) 40 mg PO DAILY [facility] Gabapentin (Neurontin -) 300 mg PO HS [facility] Heparin Sodium (Porcine) (Heparin -) 5,000 unit SQ BID [facility] Last Admin: 03/24/19 09:01 Dose: 5,000 unit Lacosamide (Vimpat -) 100 mg PO BID [facility] Last Admin: 03/24/19 09:00 Dose: 100 mg Phenytoin Sodium (Dilantin -) 200 mg PO BID [facility] Last Admin: 03/24/19 09:00 Dose: 200 mg Pregabalin (Lyrica -) 200 mg PO BID [facility] - Objective Vital Signs: Vital Signs Temperature 98.3 F 03/24/19 13:54 Pulse Rate 73 03/24/19 13:54 Respiratory Rate 18 03/24/19 13:54 Blood Pressure 118/72 03/24/19 13:54 O2 Sat by Pulse Oximetry (%) 98 03/24/19 10:00 Neurological: Yes: Alert, Oriented, Babinski negative, Paresthesia ...Motor Strength: WNL Labs: CBC, BMP 03/23/19 20:30 03/23/19 20:30 Problem List - Problems (1) Seizure disorder Code(s): G40.909 - EPILEPSY, UNSP, NOT INTRACTABLE, WITHOUT STATUS EPILEPTICUS Assessment/Plan seizure precautions. 2. Vimpat level. 3. ContinueDilantin the same
[2019-03-24] MEDS ORDERED: GABAPENTIN 300 MG CAPSULE PO SCH (22:00)
[2019-03-24] MEDS ORDERED: PT OWN MED DRAWER 7, Y5N ONE (22:11)
[2019-03-24] MEDS: PREGABALIN 100 MG CAPSULE PO SCH (22:18)
[2019-03-24] MEDS: busPIRone HCL 5 MG TABLET PO SCH (22:18)
[2019-03-24] MEDS: ATORVASTATIN CA 10 MG TABLET (FP) PO SCH (22:18)
[2019-03-25] MEDS ORDERED: PT OWN MED DRAWER 7, Y5N ONE ×2 (09:08→21:39)
[2019-03-25] MEDS: PREGABALIN 100 MG CAPSULE PO SCH ×2 (09:14→22:13)
[2019-03-25] MEDS: ASPIRIN COATED 81 MG TABLET.EC PO SCH (09:14)
[2019-03-25] MEDS: PHENYTOIN NA EXTENDED 100 MG CAPSULE (FP) PO SCH ×2 (09:14→22:14)
[2019-03-25] MEDS: CITALOPRAM HYDROBROMIDE 20 MG TABLET PO SCH (09:14)
[2019-03-25] MEDS: busPIRone HCL 5 MG TABLET PO SCH ×2 (09:15→22:14)
[2019-03-25] MEDS: HEPARIN NA (PORCINE) 5,000 UNITS/ML 1ML VIAL SQ SCH ×2 (09:15→22:15)
[2019-03-25] MEDS: LACOSAMIDE 50 MG TABLET PO SCH ×2 (10:46→22:14)
[2019-03-25] MEDS: ATORVASTATIN CA 10 MG TABLET (FP) PO SCH (22:14)
[2019-03-26] MEDS: CITALOPRAM HYDROBROMIDE 20 MG TABLET PO SCH (10:21)
[2019-03-26] MEDS: busPIRone HCL 5 MG TABLET PO SCH (10:21)
[2019-03-26] MEDS: PHENYTOIN NA EXTENDED 100 MG CAPSULE (FP) PO SCH (10:21)
[2019-03-26] MEDS: HEPARIN NA (PORCINE) 5,000 UNITS/ML 1ML VIAL SQ SCH (10:21)
[2019-03-26] MEDS: ASPIRIN COATED 81 MG TABLET.EC PO SCH (10:21)
[2019-03-26] MEDS: PREGABALIN 100 MG CAPSULE PO SCH (10:21)
[2019-03-26] MEDS: LACOSAMIDE 50 MG TABLET PO SCH (10:21)
--- NOTE | 2019-03-26 13:21 | PN ---
Progress Note, Physician History of Present Illness: Doing well No events Chart reviwed Feels good no seizure Off alberto Keprpa and on alberto vimpat - Current Medication List Current Medications: Active Medications Acetaminophen (Tylenol -) 500 mg PO Q6H PRN PRN Reason: PAIN OR FEVER Last Admin: 03/24/19 08:58 Dose: 500 mg Aspirin (Ecotrin -) 81 mg PO DAILY [facility] Last Admin: 03/26/19 10:21 Dose: 81 mg Atorvastatin Calcium (Lipitor -) 10 mg PO HS [facility] Last Admin: 03/25/19 22:14 Dose: 10 mg Buspirone HCl (Buspar -) 10 mg PO BID [facility] Last Admin: 03/26/19 10:21 Dose: 10 mg Citalopram Hydrobromide (Celexa -) 40 mg PO DAILY [facility] Last Admin: 03/26/19 10:21 Dose: 40 mg Heparin Sodium (Porcine) (Heparin -) 5,000 unit SQ BID [facility] Last Admin: 03/26/19 10:21 Dose: 5,000 unit Lacosamide (Vimpat -) 100 mg PO BID [facility] Last Admin: 03/26/19 10:21 Dose: 100 mg Phenytoin Sodium (Dilantin -) 200 mg PO BID [facility] Last Admin: 03/26/19 10:21 Dose: 200 mg Pregabalin (Lyrica -) 200 mg PO BID [facility] Last Admin: 03/26/19 10:21 Dose: 200 mg - Objective Vital Signs: Vital Signs Temperature 98.3 F 03/26/19 06:16 Pulse Rate 76 03/26/19 06:16 Respiratory Rate 18 03/26/19 06:16 Blood Pressure 115/78 03/26/19 06:16 O2 Sat by Pulse Oximetry (%) 98 03/26/19 10:00 Constitutional: Yes: Well Nourished Eyes: Yes: WNL HENT: Yes: WNL Neurological: Yes: Alert, Oriented, Babinski negative ...Motor Strength: WNL Labs: CBC, BMP 03/23/19 20:30 03/23/19 20:30 Problem List - Problems (1) Seizure disorder Assessment/Plan: DC home Keppra off Vimpat on 150 mg po q12 4. Follow up with neurology in two weeks VEEG report Code(s): G40.909 - EPILEPSY, UNSP, NOT INTRACTABLE, WITHOUT STATUS EPILEPTICUS
[2019-03-26] MEDS ORDERED: LACOSAMIDE 50 MG TABLET PO ONE (13:45)
[2019-03-26 14:29] VITALS: BP 128/76; PULSE 74; TEMP 98.4
== END 2019-03-26 16:20 | disposition home health service (06) | DRG 101 ==
LOC: J7W 17:18 → J4S 17:38
PROVIDERS: ADMIT Psychiatry & Neurology Neurology; ATTEND Psychiatry & Neurology Neurology
PROC: 4A10X4Z Monitoring of Central Nervous Electrical Activity, External Approach (ICD-10-PCS; principal; 2019-03-24)
DX: G40.909 Epilepsy, unspecified, not intractable, without status epilepticus (principal); I25.10 Atherosclerotic heart disease of native coronary artery without angina pectoris
CPT/HCPCS: 36415; 80048; 80076; 80185; 85027; 93005; 93010; 95951; J1644

== ENCOUNTER 2021-01-23 04:40 | Day surgery (SDC) | payer BC, OTHER ==
[2021-01-21 14:31] VITALS: BMI 26.8
[2021-01-23 11:40] VITALS: TEMP 97.3
[2021-01-23 12:26] VITALS: BP 101/70; PULSE 78
== END 2021-01-23 12:20 | disposition home or self-care (01) ==
LOC: JASU-ENDO 04:40
PROVIDERS: ATTEND Internal Medicine Gastroenterology
PROC: 0DJD8ZZ Inspection of Lower Intestinal Tract, Via Natural or Artificial Opening Endoscopic (ICD-10-PCS; principal; 2021-01-23 10:30)
DX: Z12.11 Encounter for screening for malignant neoplasm of colon (principal); K57.30 Diverticulosis of large intestine without perforation or abscess without bleeding

== ENCOUNTER 2021-07-19 17:02 | Observation (INO) | payer BC, OTHER ==
[2021-07-19 17:16] VITALS: BMI 24.4
[2021-07-19] MEDS ORDERED: MAGNESIUM SULF 50% (8.12 MEQ/2 ML-1 GM VIAL) IVPB ONE (17:59)
[2021-07-19] MEDS ORDERED: MAGNESIUM 1GM/D5W - 1 GM/100 ML IVPB IVPB ONE (18:03)
[2021-07-19] MEDS ORDERED: ACETAMINOPHEN 1000 MG/100 ML BAG IVPB ONE (18:04)
[2021-07-19 18:30] LABS: BASO % 0.5 % (0-2.0); EOS % 0.3 % (0-4.5); HEMOGLOBIN 13.8 GM/dL (11.7-16.9); LYMPH % 22.9 % (8-40); MCH 35.4 pg (25.7-33.7); MCHC 34.6 g/dl (32.0-35.9); MEAN CELL VOLUME 102.3 fl (80-96); MEAN PLT VOLUME 9.3 fl (7.5-11.1); MONO % 5.9 % (3.8-10.2); NEUT % 70.4 % (42.8-82.8); PLATELET COUNT 158 10^3/uL (134-434); RBC 3.91 M/mm3 (4.00-5.60); RDW 13.7 % (11.9-15.9); WHITE BLOOD COUNT 6.5 K/mm3 (4.0-10.0)
[2021-07-19 18:35] LABS: INR 1.09 (0.83-1.09); PROTHROMBIN TIME (PATIENT) 12.5 SEC (9.7-13.0)
[2021-07-19 18:38] LABS: ACTIVATED PTT 25.8 SECONDS (25.2-36.5)
[2021-07-19] MEDS ORDERED: MECLIZINE HCL 25 MG TABLET (FP) PO ONE (18:42)
[2021-07-19 18:47] LABS: ALBUMIN 4.1 g/dl (3.4-5.0); BLOOD UREA NITROGEN 13.7 mg/dL (7-18); CALCIUM 9.6 mg/dL (8.5-10.1); MAGNESIUM 2.2 mg/dL (1.8-2.4)
[2021-07-19 18:52] LABS: BILIRUBIN,TOTAL 0.3 mg/dL (0.2-1); TOT PROT 7.7 g/dl (6.4-8.2)
[2021-07-19] MEDS ORDERED: ACETAMINOPHEN INJECTION 100 ML IVPB ONE (18:53)
[2021-07-19 18:56] LABS: N-TERMINAL BNP 2713.6 pg/ml (5-125)
[2021-07-19] MEDS ORDERED: MECLIZINE HCL 25 MG TABLET (FP) ONE (18:59)
[2021-07-19] MEDS ORDERED: diazePAM CARPU-JECT 10 MG/2 ML DISP.SYRIN IVPUSH ONE (19:55)
[2021-07-19] MEDS ORDERED: LORazepam 2 MG/ML SDV VIAL IVPUSH ONE (19:56)
[2021-07-20 01:58] LABS: URINE APPEARANCE CLOUDY; URINE BILIRUBIN NEGATIVE (NEGATIVE); URINE COLOR YELLOW; URINE GLUCOSE (UA) NEGATIVE (NEGATIVE); URINE KETONE NEGATIVE (NEGATIVE); URINE LEUK ESTERASE NEGATIVE (NEGATIVE); URINE NITRITE NEGATIVE (NEGATIVE); URINE PROTEIN TRACE (NEGATIVE); URINE UROBILINOGEN 0.2 mg/dL (0.2-1.0)
[2021-07-20] MEDS ORDERED: PANTOPRAZOLE 40 MG TABLET PO ONE (08:52)
[2021-07-20] MEDS ORDERED: ASPIRIN COATED 81 MG TABLET.EC ONE (08:52)
[2021-07-20] MEDS ORDERED: PHENYTOIN NA EXTENDED 100 MG CAPSULE (FP) ONE (08:53)
[2021-07-20] MEDS ORDERED: GABAPENTIN 300 MG CAPSULE ONE (08:53)
[2021-07-20] MEDS ORDERED: ABACAVIR/DOLUTEGRAVIR/LAMIVUDI (TRIUMEQ) TABLET -NF PO SCH (10:00)
[2021-07-20] MEDS ORDERED: PANTOPRAZOLE 40 MG TABLET PO SCH (10:00)
[2021-07-20] MEDS ORDERED: PHENYTOIN NA EXTENDED 100 MG CAPSULE (FP) PO SCH (10:00)
[2021-07-20] MEDS ORDERED: levETIRAcetam XR 500 MG TAB PO SCH (10:00)
[2021-07-20] MEDS ORDERED: ASPIRIN COATED 81 MG TABLET.EC PO SCH (10:00)
[2021-07-20] MEDS ORDERED: GABAPENTIN 300 MG CAPSULE PO SCH (10:00)
[2021-07-20] MEDS ORDERED: CITALOPRAM HYDROBROMIDE 20 MG TABLET PO SCH (10:00)
[2021-07-20 10:58] VITALS: BP 156/85; PULSE 100; TEMP 97.2
[2021-07-20] MEDS ORDERED: ATORVASTATIN CA 80 MG TABLET (FP) PO SCH (22:00)
[2021-07-20] MEDS ORDERED: ATORVASTATIN CA 10 MG TABLET (FP) PO SCH (22:00)
[2021-07-20] MEDS ORDERED: SACUBITRIL/VALSARTAN 24 MG-26 MG TABLET PO SCH (22:00)
[2021-07-21] MEDS ORDERED: SPIRONOLACTONE 25 MG TABLET PO SCH (10:00)
[2021-07-21] MEDS ORDERED: EZETIMIBE 10 MG TABLET (FP) PO SCH (10:00)
== END 2021-07-20 14:07 | disposition home or self-care (01) ==
LOC: JER 17:02 → JERBED 17:48 → OBSVTOIN 07-20 13:22 → INTOOBSV 07-20 13:22
PROVIDERS: ADMIT Internal Medicine; ATTEND Internal Medicine
PROC: 3E033NZ Introduction of Analgesics, Hypnotics, Sedatives into Peripheral Vein, Percutaneous Approach (ICD-10-PCS; principal; 2021-07-19)
PROC: 3E033GC Introduction of Other Therapeutic Substance into Peripheral Vein, Percutaneous Approach (ICD-10-PCS; 2021-07-19)
DX: I25.10 Atherosclerotic heart disease of native coronary artery without angina pectoris (principal); I50.9 Heart failure, unspecified; Z95.1 Presence of aortocoronary bypass graft; R18.8 Other ascites; M79.10 Myalgia, unspecified site; F32.9 Major depressive disorder, single episode, unspecified; R56.9 Unspecified convulsions; R42 Dizziness and giddiness; Z21 Asymptomatic human immunodeficiency virus [HIV] infection status; Z86.718 Personal history of other venous thrombosis and embolism; Z96.659 Presence of unspecified artificial knee joint; C85.90 Non-Hodgkin lymphoma, unspecified, unspecified site; I25.2 Old myocardial infarction; Z91.013 Allergy to seafood
CPT/HCPCS: 0241U-QW; 36415; 70450-TC; 71045-TC-FY; 80053; 80177; 80185; 81003; 83735; 83880; 84484; 85025; 85610; 85730; 86850; 86900; 86901; 87086; 87186; 93005; 93010; 96374; 96375; 99285-25; G0378

== ENCOUNTER 2021-08-02 17:54 | Observation (INO) | payer BC, OTHER ==
[2021-08-02 18:25] VITALS: BMI 24.4
[2021-08-02 18:28] LABS: BASO % 0.6 % (0-2.0); EOS % 0.8 % (0-4.5); HEMATOCRIT 40.3 % (35.4-49); HEMOGLOBIN 13.6 GM/dL (11.7-16.9); MCH 34.3 pg (25.7-33.7); MCHC 33.8 g/dl (32.0-35.9); MEAN CELL VOLUME 101.6 fl (80-96); MEAN PLT VOLUME 9.7 fl (7.5-11.1); MONO % 7.3 % (3.8-10.2); NEUT % 61.3 % (42.8-82.8); PLATELET COUNT 160 10^3/uL (134-434); RBC 3.97 M/mm3 (4.00-5.60); RDW 13.5 % (11.9-15.9); WHITE BLOOD COUNT 8.1 K/mm3 (4.0-10.0)
[2021-08-02 18:39] LABS: INR 1.06 (0.83-1.09); PROTHROMBIN TIME (PATIENT) 12.2 SEC (9.7-13.0)
[2021-08-02 18:42] LABS: ACTIVATED PTT 24.2 SECONDS (25.2-36.5)
[2021-08-02 18:48] LABS: MAGNESIUM 2.2 mg/dL (1.8-2.4)
[2021-08-02 18:56] LABS: N-TERMINAL BNP 1194.6 pg/ml (5-125)
[2021-08-02 19:15] LABS: BLOOD UREA NITROGEN 15.8 mg/dL (7-18); CALCIUM 9.2 mg/dL (8.5-10.1)
[2021-08-02 19:20] LABS: BILIRUBIN,TOTAL 0.5 mg/dL (0.2-1); TOT PROT 7.2 g/dl (6.4-8.2)
[2021-08-02] MEDS ORDERED: PHENYTOIN NA EXTENDED 100 MG CAPSULE (FP) PO ONE (22:28)
[2021-08-02] MEDS: levETIRAcetam XR 500 MG TAB PO SCH (23:31)
[2021-08-03 03:15] LABS: EPI CELLS 2 /uL (0-25.1); HYALINE CASTS 3 /uL (0-3.1); PH,URINE 5.5 (5.0-8.0); URINE APPEARANCE CLEAR; URINE BACTERIA 1311 /uL (0-1359); URINE BILIRUBIN NEGATIVE (NEGATIVE); URINE COLOR YELLOW; URINE GLUCOSE (UA) NEGATIVE (NEGATIVE); URINE KETONE NEGATIVE (NEGATIVE); URINE LEUK ESTERASE 1+ (NEGATIVE); URINE NITRITE NEGATIVE (NEGATIVE); URINE PROTEIN TRACE (NEGATIVE); URINE RBC 13 /uL (0-23.9); URINE UROBILINOGEN 0.2 mg/dL (0.2-1.0); URINE WBC 159 /uL (0-25.8)
[2021-08-03] MEDS ORDERED: ACETAMINOPHEN 325 MG TABLET (FP) PO PRN (06:45)
[2021-08-03 07:13] VITALS: TEMP 97.8
[2021-08-03] MEDS ORDERED: TAMSULOSIN HCL 0.4 MG CAP PO SCH (08:30)
[2021-08-03] MEDS ORDERED: ASPIRIN COATED 81 MG TABLET.EC ONE (09:45)
[2021-08-03] MEDS ORDERED: PANTOPRAZOLE 40 MG TABLET PO ONE (09:45)
[2021-08-03] MEDS ORDERED: TICAGRELOR 90 MG TABLET PO ONE (09:45)
[2021-08-03] MEDS ORDERED: PHENYTOIN NA EXTENDED 100 MG CAPSULE (FP) ONE (09:46)
[2021-08-03] MEDS: levETIRAcetam XR 500 MG TAB PO SCH (09:56)
[2021-08-03] MEDS ORDERED: FENOFIBRIC ACID 135 MG CAP PO SCH (10:00)
[2021-08-03] MEDS ORDERED: PANTOPRAZOLE 40 MG TABLET PO SCH (10:00)
[2021-08-03] MEDS ORDERED: SERTRALINE HCL 25 MG TABLET (FP) PO SCH (10:00)
[2021-08-03] MEDS ORDERED: CITALOPRAM HYDROBROMIDE 20 MG TABLET PO SCH ×2 (10:00)
[2021-08-03] MEDS ORDERED: PHENYTOIN NA EXTENDED 100 MG CAPSULE (FP) PO SCH (10:00)
[2021-08-03] MEDS ORDERED: ABACAVIR/DOLUTEGRAVIR/LAMIVUDI (TRIUMEQ) TABLET -NF PO SCH (10:00)
[2021-08-03] MEDS ORDERED: SACUBITRIL/VALSARTAN 24 MG-26 MG TABLET PO SCH (10:00)
[2021-08-03] MEDS ORDERED: TICAGRELOR 90 MG TABLET PO SCH (10:00)
[2021-08-03] MEDS ORDERED: PATIENT'S OWN MEDICATION (NON-FORMULARY) (Mirabegron [Myrbetriq] 25 MG Tab.Er.24h) PO SCH (10:00)
[2021-08-03] MEDS ORDERED: ASPIRIN COATED 81 MG TABLET.EC PO SCH (10:00)
[2021-08-03 13:39] VITALS: BP 94/62; PULSE 82
[2021-08-03] MEDS ORDERED: ATORVASTATIN CA 80 MG TABLET (FP) PO SCH (22:00)
== END 2021-08-03 22:20 | disposition home or self-care (01) ==
LOC: JER 17:54 → JERBED 21:26
PROVIDERS: ADMIT Internal Medicine; ATTEND Internal Medicine
DX: I25.10 Atherosclerotic heart disease of native coronary artery without angina pectoris (principal); D75.89 Other specified diseases of blood and blood-forming organs; C85.80 Other specified types of non-Hodgkin lymphoma, unspecified site; Z21 Asymptomatic human immunodeficiency virus [HIV] infection status; R32 Unspecified urinary incontinence; R26.81 Unsteadiness on feet; R18.8 Other ascites; I25.2 Old myocardial infarction; Z95.5 Presence of coronary angioplasty implant and graft; Z92.21 Personal history of antineoplastic chemotherapy; M62.81 Muscle weakness (generalized); Z95.1 Presence of aortocoronary bypass graft; Z91.013 Allergy to seafood
CPT/HCPCS: 36415; 71045-TC-FY; 80053; 80177; 80185; 81003; 82550; 82962; 83735; 83880; 84484; 85025; 85610; 85730; 87086; 93005; 93010; 99285-25; C9803-CS; G0378; U0003; U0005

== ENCOUNTER 2022-07-27 08:55 | Inpatient (IN) | payer OTHER ==
[2022-07-27 10:07] LABS: BASO % 0.7 % (0-2.0); EOS % 0.9 % (0-4.5); HEMATOCRIT 39.5 % (35.4-49); HEMOGLOBIN 13.5 GM/dL (11.7-16.9); LYMPH % 29.8 % (8-40); MCH 34.6 pg (25.7-33.7); MCHC 34.1 g/dl (32.0-35.9); MEAN CELL VOLUME 101.5 fl (80-96); MEAN PLT VOLUME 9.3 fl (7.5-11.1); NEUT % 60.6 % (42.8-82.8); PLATELET COUNT 178 10^3/uL (134-434); RBC 3.89 M/mm3 (4.00-5.60); RDW 13.5 % (11.9-15.9); WHITE BLOOD COUNT 4.6 K/mm3 (4.0-10.0)
[2022-07-27 10:14] LABS: INR 1.13 (0.83-1.09); PROTHROMBIN TIME (PATIENT) 13.1 SEC (9.7-13.0)
[2022-07-27 10:16] LABS: ACTIVATED PTT 28.4 SECONDS (25.2-36.5)
[2022-07-27 10:30] LABS: POTASSIUM 4.2 mmol/L (3.5-5.1)
[2022-07-27 10:32] LABS: CALCIUM 9.2 mg/dL (8.5-10.1)
[2022-07-27 10:33] LABS: ALBUMIN 3.7 g/dl (3.4-5.0); BLOOD UREA NITROGEN 21.8 mg/dL (7-18)
[2022-07-27 10:37] LABS: CREATININE 1.1 mg/dL (0.55-1.3); TOT PROT 6.9 g/dl (6.4-8.2)
[2022-07-27 11:07] LABS: BILIRUBIN,TOTAL 0.2 mg/dL (0.2-1)
[2022-07-27 12:03] LABS: URINE APPEARANCE CLEAR; URINE BILIRUBIN NEGATIVE (NEGATIVE); URINE COLOR YELLOW; URINE GLUCOSE (UA) 3+ (NEGATIVE); URINE KETONE NEGATIVE (NEGATIVE); URINE LEUK ESTERASE NEGATIVE (NEGATIVE); URINE NITRITE NEGATIVE (NEGATIVE); URINE PROTEIN NEGATIVE (NEGATIVE); URINE UROBILINOGEN 0.2 mg/dL (0.2-1.0)
[2022-07-27] MEDS ORDERED: ACETAMINOPHEN 325 MG TABLET (FP) PO PRN (13:21)
[2022-07-27] MEDS ORDERED: IBUPROFEN 600 MG TABLET (FP) PO ONE ×2 (13:32→13:35)
[2022-07-27] MEDS ORDERED: ASPIRIN 81 MG CHEWABLE TABLETS ONE (13:35)
[2022-07-27] MEDS: ASPIRIN COATED 81 MG TABLET.EC PO SCH (13:41)
[2022-07-27] MEDS ORDERED: levETIRAcetam 500 MG TABLET (FP) PO SCH (13:45)
[2022-07-27] MEDS ORDERED: PHENYTOIN NA EXTENDED 100 MG CAPSULE (FP) ONE (14:07)
[2022-07-27] MEDS ORDERED: ENOXAPARIN NA (PORCINE) 40 MG/0.4 ML DISP.SYRIN SQ ONE (14:07)
[2022-07-27] MEDS ORDERED: PANTOPRAZOLE 40 MG TABLET PO ONE (14:07)
[2022-07-27] MEDS: PHENYTOIN NA EXTENDED 100 MG CAPSULE (FP) PO SCH ×2 (14:18→22:10)
[2022-07-27] MEDS: ENOXAPARIN NA (PORCINE) 40 MG/0.4 ML DISP.SYRIN SQ SCH (14:18)
[2022-07-27] MEDS: PANTOPRAZOLE 40 MG TABLET PO SCH (14:18)
[2022-07-27] MEDS ORDERED: IBUPROFEN 400 MG TABLET (FP) PO PRN (14:58)
[2022-07-27] MEDS ORDERED: CYANOCOBALAMIN (VITAMIN B-12) 1000 MCG/1 ML VIAL IM ONE (20:41)
[2022-07-27] MEDS ORDERED: levETIRAcetam XR 500 MG TAB PO SCH (22:00)
[2022-07-27] MEDS ORDERED: ATORVASTATIN CA 80 MG TABLET (FP) PO SCH (22:00)
[2022-07-27] MEDS: TAMSULOSIN HCL 0.4 MG CAP PO SCH (22:10)
[2022-07-27] MEDS: busPIRone HCL 10 MG TABLET (FP) PO SCH (22:10)
[2022-07-27] MEDS: TICAGRELOR 90 MG TABLET PO SCH (22:11)
[2022-07-28 00:30] VITALS: BMI 23.8
[2022-07-28] MEDS: TAMSULOSIN HCL 0.4 MG CAP PO SCH (08:03)
[2022-07-28] MEDS: ENOXAPARIN NA (PORCINE) 40 MG/0.4 ML DISP.SYRIN SQ SCH (09:37)
[2022-07-28] MEDS: PHENYTOIN NA EXTENDED 100 MG CAPSULE (FP) PO SCH (09:38)
[2022-07-28] MEDS: busPIRone HCL 10 MG TABLET (FP) PO SCH (09:39)
[2022-07-28] MEDS: PANTOPRAZOLE 40 MG TABLET PO SCH (09:39)
[2022-07-28] MEDS: ASPIRIN COATED 81 MG TABLET.EC PO SCH (09:39)
[2022-07-28] MEDS: TICAGRELOR 90 MG TABLET PO SCH (09:40)
[2022-07-28] MEDS ORDERED: CYANOCOBALAMIN 1,000 MCG TABLET (FP) PO SCH (10:00)
[2022-07-28] MEDS ORDERED: FENOFIBRIC ACID 135 MG CAP PO SCH (10:00)
[2022-07-28] MEDS ORDERED: SERTRALINE HCL 25 MG TABLET (FP) PO SCH (10:00)
[2022-07-28] MEDS ORDERED: TOLTERODINE TARTRATE LA 4 MG CAP.SR.24H (FP) PO SCH (10:00)
[2022-07-28] MEDS ORDERED: ABACAVIR/DOLUTEGRAVIR/LAMIVUDI (TRIUMEQ) TABLET PO SCH (10:00)
[2022-07-28 10:48] VITALS: RESP 18
[2022-07-28 15:31] VITALS: BP 114/80; PULSE 79; TEMP 98
[2022-07-28 17:32] LABS: N-TERMINAL BNP 367.2 pg/ml (5-125)
== END 2022-07-28 18:24 | disposition home or self-care (01) | DRG 313 ==
LOC: JER 08:55 → JERBED 13:13 → OBSVTOIN 13:35 → JERBED 18:38 → J4W 18:46
PROVIDERS: ADMIT Internal Medicine; ATTEND Internal Medicine
DX: R07.89 Other chest pain (principal); I50.22 Chronic systolic (congestive) heart failure; I25.10 Atherosclerotic heart disease of native coronary artery without angina pectoris; N40.0 Benign prostatic hyperplasia without lower urinary tract symptoms; G40.909 Epilepsy, unspecified, not intractable, without status epilepticus; R51.9 Headache, unspecified; E78.5 Hyperlipidemia, unspecified; Z21 Asymptomatic human immunodeficiency virus [HIV] infection status; F32.A Depression, unspecified; Z95.1 Presence of aortocoronary bypass graft; Z86.73 Personal history of transient ischemic attack (TIA), and cerebral infarction without residual deficits
CPT/HCPCS: 36415; 70450-TC; 71045-TC-FY; 80053; 80061; 81003; 82550; 82607; 83036; 83880; 84443; 84484; 85025; 85610; 85730; 86850; 86900; 86901; 87086; 87186; 87635; 93005; 93010; 93306-TC; 97116-GP; 97162-GP; 99285-25; G0378

== ENCOUNTER 2023-01-18 08:51 | Observation (INO) | payer OTHER ==
[2023-01-18 09:53] LABS: BASO % 0.2 % (0-2.0); EOS % 0.3 % (0-4.5); HEMOGLOBIN 13.9 GM/dL (11.7-16.9); MCH 34.3 pg (25.7-33.7); MEAN CELL VOLUME 103.8 fl (80-96); MEAN PLT VOLUME 9.6 fl (7.5-11.1); MONO % 8.4 % (3.8-10.2); NEUT % 77.1 % (42.8-82.8); PLATELET COUNT 154 10^3/uL (134-434); RBC 4.05 M/mm3 (4.00-5.60); RDW 14.5 % (11.9-15.9); WHITE BLOOD COUNT 9.1 K/mm3 (4.0-10.0)
[2023-01-18 09:57] LABS: INR 1.13 (0.83-1.09); PROTHROMBIN TIME (PATIENT) 13.1 SEC (9.7-13.0)
[2023-01-18 10:00] LABS: ACTIVATED PTT 26.6 SECONDS (25.2-36.5)
[2023-01-18 10:10] LABS: POTASSIUM 3.8 mmol/L (3.5-5.1)
[2023-01-18 10:12] LABS: ALBUMIN 4.2 g/dl (3.4-5.0); CALCIUM 9.3 mg/dL (8.5-10.1)
[2023-01-18 10:13] LABS: BLOOD UREA NITROGEN 26.4 mg/dL (7-18)
[2023-01-18 10:15] LABS: CREATININE 1.4 mg/dL (0.55-1.3)
[2023-01-18 10:17] LABS: BILIRUBIN,TOTAL 0.3 mg/dL (0.2-1); TOT PROT 7.3 g/dl (6.4-8.2)
[2023-01-18 10:20] LABS: N-TERMINAL BNP 819.8 pg/ml (5-125)
[2023-01-18] MEDS ORDERED: SODIUM CHLORIDE 1,000 ML IV STA (14:26)
[2023-01-18] MEDS ORDERED: PHENYTOIN NA EXTENDED 100 MG CAPSULE (FP) ONE (21:25)
[2023-01-18] MEDS ORDERED: TICAGRELOR 90 MG TABLET PO ONE (21:25)
[2023-01-18] MEDS ORDERED: SACUBITRIL/VALSARTAN 24 MG-26 MG TABLET ONE (21:25)
[2023-01-18] MEDS ORDERED: ATORVASTATIN CA 80 MG TABLET (FP) ONE (21:26)
[2023-01-18] MEDS: TICAGRELOR 90 MG TABLET PO SCH (21:38)
[2023-01-18] MEDS: PHENYTOIN NA EXTENDED 100 MG CAPSULE (FP) PO SCH (21:38)
[2023-01-18] MEDS: SACUBITRIL/VALSARTAN 24 MG-26 MG TABLET PO SCH (21:38)
[2023-01-18] MEDS ORDERED: ATORVASTATIN CA 80 MG TABLET (FP) PO SCH (22:00)
[2023-01-18 22:10] LABS: EPI CELLS 0 /uL (0-25.1); HYALINE CASTS 0 /uL (0-3.1); PH,URINE 6.5 (5.0-8.0); URINE APPEARANCE CLEAR; URINE BACTERIA 3601 /uL (0-1359); URINE BILIRUBIN NEGATIVE (NEGATIVE); URINE COLOR YELLOW; URINE GLUCOSE (UA) 3+ (NEGATIVE); URINE KETONE NEGATIVE (NEGATIVE); URINE LEUK ESTERASE 1+ (NEGATIVE); URINE NITRITE NEGATIVE (NEGATIVE); URINE PROTEIN NEGATIVE (NEGATIVE); URINE RBC 17 /uL (0-23.9); URINE WBC 107 /uL (0-25.8)
[2023-01-19 03:39] VITALS: BMI 25.0
[2023-01-19 07:48] LABS: HEMATOCRIT 39.8 % (35.4-49); HEMOGLOBIN 13.4 GM/dL (11.7-16.9); MCH 34.9 pg (25.7-33.7); MCHC 33.7 g/dl (32.0-35.9); MEAN CELL VOLUME 103.7 fl (80-96); MEAN PLT VOLUME 9.7 fl (7.5-11.1); PLATELET COUNT 148 10^3/uL (134-434); RBC 3.84 M/mm3 (4.00-5.60); RDW 14.6 % (11.9-15.9); WHITE BLOOD COUNT 7.4 K/mm3 (4.0-10.0)
[2023-01-19 08:34] LABS: POTASSIUM 3.6 mmol/L (3.5-5.1)
[2023-01-19 08:36] LABS: CALCIUM 8.7 mg/dL (8.5-10.1)
[2023-01-19 08:37] LABS: BLOOD UREA NITROGEN 20.3 mg/dL (7-18); MAGNESIUM 1.8 mg/dL (1.8-2.4)
[2023-01-19 08:40] LABS: CREATININE 0.9 mg/dL (0.55-1.3)
[2023-01-19] MEDS: SACUBITRIL/VALSARTAN 24 MG-26 MG TABLET PO SCH (09:34)
[2023-01-19] MEDS: PHENYTOIN NA EXTENDED 100 MG CAPSULE (FP) PO SCH (09:34)
[2023-01-19] MEDS: TICAGRELOR 90 MG TABLET PO SCH (09:34)
[2023-01-19] MEDS ORDERED: SERTRALINE HCL 25 MG TABLET (FP) PO SCH (10:00)
[2023-01-19] MEDS ORDERED: SPIRONOLACTONE 25 MG TABLET PO SCH (10:00)
[2023-01-19] MEDS ORDERED: PANTOPRAZOLE 40 MG TABLET PO SCH (10:00)
[2023-01-19] MEDS ORDERED: EMPAGLIFLOZIN (JARDIANCE) 10 MG TABLET PO SCH (10:00)
[2023-01-19] MEDS ORDERED: OLANZapine 5 MG TABLET PO SCH (10:00)
[2023-01-19] MEDS ORDERED: FLU VACCINE (FLULAVAL) PF 60 MCG/0.5 ML SYRINGE 2023-2024 IM ONE (10:00)
[2023-01-19] MEDS ORDERED: CEFTRIAXONE 1 GM in DEXTROSE 5%-WATER - 50 ML IVPB SCH (11:00)
[2023-01-19 15:06] VITALS: RESP 18; TEMP 97.4
[2023-01-19 16:57] VITALS: PULSE 83
[2023-01-19 16:58] VITALS: BP 117/75
== END 2023-01-19 18:53 | disposition home or self-care (01) ==
LOC: JER 08:51 → JERBED 15:56 → J4W 01-19 03:00
PROVIDERS: ADMIT Internal Medicine; ATTEND Internal Medicine
PROC: 3E03329 Introduction of Other Anti-infective into Peripheral Vein, Percutaneous Approach (ICD-10-PCS; principal; 2023-01-18)
PROC: 3E023GC Introduction of Other Therapeutic Substance into Muscle, Percutaneous Approach (ICD-10-PCS; 2023-01-18)
PROC: 3E0337Z Introduction of Electrolytic and Water Balance Substance into Peripheral Vein, Percutaneous Approach (ICD-10-PCS; 2023-01-18)
DX: M25.552 Pain in left hip (principal); M79.642 Pain in left hand; N39.0 Urinary tract infection, site not specified; W18.39XA Other fall on same level, initial encounter; Y93.89 Activity, other specified; N17.9 Acute kidney failure, unspecified; Y92.410 Unspecified street and highway as the place of occurrence of the external cause; I21.4 Non-ST elevation (NSTEMI) myocardial infarction; I25.10 Atherosclerotic heart disease of native coronary artery without angina pectoris; I50.9 Heart failure, unspecified; Z95.5 Presence of coronary angioplasty implant and graft; Z86.73 Personal history of transient ischemic attack (TIA), and cerebral infarction without residual deficits; B20 Human immunodeficiency virus [HIV] disease; C85.90 Non-Hodgkin lymphoma, unspecified, unspecified site; R56.9 Unspecified convulsions; F32.A Depression, unspecified; E78.00 Pure hypercholesterolemia, unspecified; Z87.891 Personal history of nicotine dependence; N40.0 Benign prostatic hyperplasia without lower urinary tract symptoms; Z88.6 Allergy status to analgesic agent; Z99.89 Dependence on other enabling machines and devices; Z23 Encounter for immunization
CPT/HCPCS: 0241U-QW; 36415; 70450-TC; 73030-TC-LT-FY; 73070-TC-LT-FY; 73090-TC-LT-FY; 73110-TC-LT-FY; 73130-TC-LT-FY; 80048; 80053; 81003; 82550; 83735; 83880; 84484; 85025; 85027; 85610; 85730; 87086; 87186; 90686; 93005; 93010; 96361; 96365; 96372; 97116-GP; 97161-GP; 99285-25; G0378

== ENCOUNTER 2023-09-15 11:16 | Inpatient (IN) | payer OTHER ==
[2023-09-15 12:05] VITALS: RESP 15; BMI 24.4
[2023-09-15] MEDS ORDERED: METOCLOPRAMIDE HCL INJECTION 10 MG/2 ML VIAL ONE (14:01)
[2023-09-15] MEDS: SODIUM CHLORIDE 0.9% 500 ML INFUS.BAG IV ONE (14:23)
[2023-09-15] MEDS: METOCLOPRAMIDE HCL INJECTION 10 MG/2 ML VIAL IVPUSH ONE (14:23)
[2023-09-15 14:28] LABS: BASO % 0.3 % (0-2.0); EOS % 0.3 % (0-4.5); HEMATOCRIT 42.7 % (35.4-49); HEMOGLOBIN 14.7 GM/dL (11.7-16.9); LYMPH % 22.6 % (8-40); MCH 34.7 pg (25.7-33.7); MCHC 34.6 g/dl (32.0-35.9); MEAN CELL VOLUME 100.3 fl (80-96); MEAN PLT VOLUME 9.1 fl (7.5-11.1); MONO % 8.9 % (3.8-10.2); NEUT % 67.9 % (42.8-82.8); PLATELET COUNT 135 10^3/uL (134-434); RBC 4.25 M/mm3 (4.00-5.60); RDW 13.3 % (11.9-15.9); WHITE BLOOD COUNT 5.3 K/mm3 (4.0-10.0)
[2023-09-15 14:35] LABS: INR 1.1 (0.83-1.09); PROTHROMBIN TIME (PATIENT) 12.6 SEC (9.7-13.0)
[2023-09-15 14:38] LABS: ACTIVATED PTT 26.5 SECONDS (25.2-36.5)
[2023-09-15 14:53] LABS: POTASSIUM 4.8 mmol/L (3.5-5.1)
[2023-09-15 14:54] LABS: CALCIUM 9.9 mg/dL (8.5-10.1)
[2023-09-15 14:55] LABS: ALBUMIN 4.2 g/dl (3.4-5.0); BLOOD UREA NITROGEN 25.6 mg/dL (7-18)
[2023-09-15 14:58] LABS: CREATININE 1.3 mg/dL (0.55-1.3)
[2023-09-15 15:00] LABS: BILIRUBIN,TOTAL 0.4 mg/dL (0.2-1); TOT PROT 7.4 g/dl (6.4-8.2)
[2023-09-15 17:01] VITALS: BP 100/69; PULSE 68
[2023-09-15 17:08] VITALS: TEMP 97.8
[2023-09-15] MEDS ORDERED: D5-1/2NS+10 MEQ KCL - 10 MEQ/1,000 ML INFUS.BAG IV SCH ×2 (19:00→19:09)
[2023-09-15] MEDS ORDERED: PANTOPRAZOLE 40 MG TABLET PO SCH (19:00)
[2023-09-15] MEDS ORDERED: INSULIN ASPART SLIDING SCALE (NOVOLOG) 1 VIAL SQ SCH (19:15)
[2023-09-15] MEDS ORDERED: PHENYTOIN NA EXTENDED 100 MG CAPSULE (FP) PO SCH (22:00)
[2023-09-15] MEDS ORDERED: TICAGRELOR 90 MG TABLET PO SCH (22:00)
[2023-09-15] MEDS ORDERED: SACUBITRIL/VALSARTAN 24 MG-26 MG TABLET PO SCH (22:00)
[2023-09-15] MEDS ORDERED: ATORVASTATIN CA 80 MG TABLET (FP) PO SCH (22:00)
[2023-09-15] MEDS ORDERED: OLANZapine 5 MG TABLET PO SCH (22:00)
[2023-09-15] MEDS ORDERED: HEPARIN NA (PORCINE) 5,000 UNITS/ML 1ML VIAL SQ SCH (22:00)
[2023-09-16] MEDS ORDERED: SERTRALINE HCL 25 MG TABLET (FP) PO SCH (10:00)
[2023-09-16] MEDS ORDERED: ASPIRIN COATED 81 MG TABLET.EC PO SCH (10:00)
[2023-09-16] MEDS ORDERED: ABACAVIR/DOLUTEGRAVIR/LAMIVUDI (TRIUMEQ) TABLET PO SCH (10:00)
[2023-09-16] MEDS ORDERED: SPIRONOLACTONE 25 MG TABLET PO SCH (10:00)
== END 2023-09-15 19:09 | disposition left against medical advice (07) | DRG 68 ==
LOC: JER 11:16 → JERBED 18:15
PROVIDERS: ADMIT Internal Medicine; ATTEND Internal Medicine
DX: I66.23 Occlusion and stenosis of bilateral posterior cerebral arteries (principal); I50.22 Chronic systolic (congestive) heart failure; I25.10 Atherosclerotic heart disease of native coronary artery without angina pectoris; N40.0 Benign prostatic hyperplasia without lower urinary tract symptoms; G40.909 Epilepsy, unspecified, not intractable, without status epilepticus; I77.1 Stricture of artery; F41.8 Other specified anxiety disorders; E11.9 Type 2 diabetes mellitus without complications; I11.0 Hypertensive heart disease with heart failure; D69.59 Other secondary thrombocytopenia; Z95.1 Presence of aortocoronary bypass graft; Z85.72 Personal history of non-Hodgkin lymphomas; Z21 Asymptomatic human immunodeficiency virus [HIV] infection status
CPT/HCPCS: 36415; 70450-TC; 70496-TC; 70498-TC; 80053; 82962; 85025; 85610; 85730; 86850; 86900; 86901; 93005; 93010; 99285-25; Q9967

== ENCOUNTER 2023-09-30 11:41 | Emergency (ER) | payer OTHER ==
[2023-09-30 12:06] VITALS: BP 105/64; PULSE 68; RESP 16; TEMP 98.3; BMI 29.0
[2023-09-30] MEDS ORDERED: IBUPROFEN 400 MG TABLET (FP) PO ONE (15:09)
[2023-09-30] MEDS ORDERED: DOXYCYCLINE HYCLATE 100 MG CAPSULE PO ONE (15:09)
[2023-09-30] MEDS: IBUPROFEN 400 MG TABLET (FP) PO ONE (15:11)
[2023-09-30] MEDS: DOXYCYCLINE HYCLATE 100 MG CAPSULE PO ONE (15:11)
== END 2023-09-30 15:12 | disposition home or self-care (01) ==
LOC: JER 11:41
PROC: 0H9DXZZ Drainage of Right Lower Arm Skin, External Approach (ICD-10-PCS; principal; 2023-09-30)
DX: L02.413 Cutaneous abscess of right upper limb (principal)
CPT/HCPCS: 10060; 99284-25

== ENCOUNTER 2023-10-18 10:32 | Observation (INO) | payer OTHER ==
[2023-10-18] MEDS ORDERED: IBUPROFEN 400 MG TABLET (FP) PO ONE (11:10)
[2023-10-18] MEDS ORDERED: LIDOCAINE 4% PATCH TP ONE (11:11)
[2023-10-18] MEDS: IBUPROFEN 400 MG TABLET (FP) PO ONE (11:18)
[2023-10-18] MEDS: LIDOCAINE 4% PATCH TP ONE (11:18)
[2023-10-18] MEDS ORDERED: METHOCARBAMOL 500 MG TABLET ONE (11:22)
[2023-10-18] MEDS: METHOCARBAMOL 750 MG TAB PO ONE (11:25)
[2023-10-18 12:34] LABS: BASO % 0.4 % (0-2.0); EOS % 0.7 % (0-4.5); HEMATOCRIT 38.3 % (35.4-49); HEMOGLOBIN 13.1 GM/dL (11.7-16.9); LYMPH % 18.8 % (8-40); MCH 34.7 pg (25.7-33.7); MCHC 34.4 g/dl (32.0-35.9); MEAN CELL VOLUME 100.9 fl (80-96); MEAN PLT VOLUME 9.5 fl (7.5-11.1); MONO % 8.1 % (3.8-10.2); PLATELET COUNT 133 10^3/uL (134-434); RBC 3.79 M/mm3 (4.00-5.60); RDW 14.5 % (11.9-15.9); WHITE BLOOD COUNT 7.7 K/mm3 (4.0-10.0)
[2023-10-18 12:57] LABS: POTASSIUM 3.6 mmol/L (3.5-5.1)
[2023-10-18 12:59] LABS: ALBUMIN 3.7 g/dl (3.4-5.0); CALCIUM 9.2 mg/dL (8.5-10.1)
[2023-10-18 13:00] LABS: BLOOD UREA NITROGEN 16.2 mg/dL (7-18)
[2023-10-18 13:03] LABS: CREATININE 1.1 mg/dL (0.55-1.3)
[2023-10-18 13:04] LABS: BILIRUBIN,TOTAL 0.4 mg/dL (0.2-1); TOT PROT 6.8 g/dl (6.4-8.2)
[2023-10-18 14:40] LABS: EPI CELLS 12 /uL (0-25.1); HYALINE CASTS 1 /uL (0-3.1); PH,URINE 5.5 (5.0-8.0); URINE APPEARANCE CLEAR; URINE BACTERIA 618 /uL (0-1359); URINE BILIRUBIN NEGATIVE (NEGATIVE); URINE COLOR YELLOW; URINE GLUCOSE (UA) NEGATIVE (NEGATIVE); URINE KETONE NEGATIVE (NEGATIVE); URINE LEUK ESTERASE 1+ (NEGATIVE); URINE NITRITE NEGATIVE (NEGATIVE); URINE PROTEIN NEGATIVE (NEGATIVE); URINE WBC 82 /uL (0-25.8)
[2023-10-18 15:04] LABS: URINE RBC 22 /uL (0-23.9)
[2023-10-18] MEDS ORDERED: KETOROLAC TROMETHAMINE 15 MG/ML VIAL ONE (16:33)
[2023-10-18] MEDS: KETOROLAC TROMETHAMINE 15 MG/ML VIAL IVPUSH ONE (16:38)
[2023-10-18] MEDS ORDERED: CEFTRIAXONE 1 GM/50 ML BAG ONE (18:32)
[2023-10-18] MEDS: PANTOPRAZOLE 40 MG TABLET PO SCH (18:33)
[2023-10-18] MEDS: INSULIN ASPART SLIDING SCALE (NOVOLOG) 1 VIAL SQ SCH (19:45)
[2023-10-18 20:39] VITALS: RESP 18
[2023-10-18] MEDS ORDERED: ASPIRIN 325 MG ENTERIC COATED TABLET (FP) PO PRN (20:41)
[2023-10-18 20:58] VITALS: BMI 26.3
[2023-10-18] MEDS: TICAGRELOR 90 MG TABLET PO SCH (22:26)
[2023-10-18] MEDS: LIDOCAINE PATCH REMOVAL MC SCH (22:27)
[2023-10-18] MEDS: PHENYTOIN NA EXTENDED 100 MG CAPSULE (FP) PO SCH (22:54)
[2023-10-18] MEDS: ATORVASTATIN CA 80 MG TABLET (FP) PO SCH (22:55)
[2023-10-18] MEDS: SACUBITRIL/VALSARTAN 24 MG-26 MG TABLET PO SCH (22:55)
[2023-10-19] MEDS: LIDOCAINE PATCH REMOVAL MC ONE (05:27)
[2023-10-19] MEDS: INSULIN ASPART SLIDING SCALE (NOVOLOG) 1 VIAL SQ SCH (06:02)
[2023-10-19] MEDS: SERTRALINE HCL 25 MG TABLET (FP) PO SCH (09:19)
[2023-10-19] MEDS: SPIRONOLACTONE 25 MG TABLET PO SCH (09:19)
[2023-10-19] MEDS: ASPIRIN COATED 81 MG TABLET.EC PO SCH (09:19)
[2023-10-19] MEDS: traMADol HCL 50 MG TABLET PO PRN (09:20)
[2023-10-19] MEDS: LIDOCAINE 4% PATCH TP SCH (09:23)
[2023-10-19] MEDS ORDERED: OLANZapine 7.5 MG TABLET PO SCH ×2 (10:00)
[2023-10-19] MEDS: OLANZapine 5 MG TABLET PO SCH (10:38)
[2023-10-19] MEDS: ABACAVIR/DOLUTEGRAVIR/LAMIVUDI (TRIUMEQ) TABLET PO SCH (11:31)
[2023-10-19] MEDS: VANCOMYCIN/WATER FOR INJ (PEG) 1,000 MG/200 ML BAG IVPB ONE (20:02)
[2023-10-20 14:45] VITALS: BP 100/72; PULSE 65; TEMP 98
== END 2023-10-20 18:34 | disposition home or self-care (01) ==
LOC: JER 10:32 → JERBED 17:59 → UNDOADMOB 17:59 → OBSVTOIN 18:12 → INTOOBSV 18:12 → J6S 20:03 → JERBED 20:03 → J6S 10-19 10:51 → JERBED 10-19 10:51
PROVIDERS: ADMIT Internal Medicine; ATTEND Internal Medicine
PROC: 3E03329 Introduction of Other Anti-infective into Peripheral Vein, Percutaneous Approach (ICD-10-PCS; principal; 2023-10-19)
PROC: 3E013VG Introduction of Insulin into Subcutaneous Tissue, Percutaneous Approach (ICD-10-PCS; 2023-10-19)
PROC: 3E0333Z Introduction of Anti-inflammatory into Peripheral Vein, Percutaneous Approach (ICD-10-PCS; 2023-10-19)
DX: N39.0 Urinary tract infection, site not specified (principal); I25.10 Atherosclerotic heart disease of native coronary artery without angina pectoris; F32.A Depression, unspecified; N40.0 Benign prostatic hyperplasia without lower urinary tract symptoms; R56.9 Unspecified convulsions; I21.4 Non-ST elevation (NSTEMI) myocardial infarction; B20 Human immunodeficiency virus [HIV] disease; Z86.73 Personal history of transient ischemic attack (TIA), and cerebral infarction without residual deficits; Z91.013 Allergy to seafood; Z88.8 Allergy status to other drugs, medicaments and biological substances
CPT/HCPCS: 36415; 74176-TC; 76870-TC; 80053; 81003; 82962; 85025; 86359; 86360; 87086; 87186; 93005; 93010; 96365; 96372; 96375; 97116-GP; 97162-GP; 99285-25; G0378